=== PATIENT | female | born 1950 | race African-American/Black ===

== ENCOUNTER 2017-04-20 20:52 | Emergency (ER) | payer OTHER ==
[~2017-04-20] VITALS: Ht 149.9 cm; Wt 68.0 kg
--- NOTE | ~2017-04-20 | EKG ---
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
[2017-04-20] MEDS ORDERED: ADULT LOW DOSE81 MG PO (22:05)
[2017-04-20] MEDS ORDERED: UNICOMPLEX M TA1 TA1 PO (22:05)
[2017-04-20 22:43] LABS: ABSOLUTE NEUTROPHILS 5.7 thou/uL (1.4-8.2); BASOPHILS 0.8 % (0.0-2.0); EOSINOPHILS 0.7 % (0.0-3.0); HEMATOCRIT 39.6 % (37.0-47.0); LYMPHOCYTES 29.5 % (24.0-44.0); MCH 27.9 pg (26.0-34.0); MCHC 32.8 g/dL (28.0-37.0); MCV 85.2 fL (80.0-100.0); MONOCYTES 6.4 % (1.0-8.0); PLATELET COUNT 335 thou/uL (150-400); POLYS 62.6 % (36.0-66.0); RBC 4.65 mil/uL (4.20-5.00); RDW 14.1 % (10.5-14.5); WBC 9.1 thou/uL (4.0-11.0)
[2017-04-20 22:45] LABS: MANUAL DIFF NO
[2017-04-20 22:45] LABS: URINE BILIRUBIN NEGATIVE (Negative); URINE BLOOD NEGATIVE (Negative); URINE COLOR YELLOW; URINE GLUCOSE-RANDOM* NEGATIVE (Negative); URINE KETONES NEGATIVE (Negative); URINE LEUKOCYTES-REFLEX 1+ (Negative); URINE PROTEIN (DIPSTICK) NEGATIVE (Negative); URINE SPECIFIC GRAVITY 1.015 (1.003-1.035); URINE UROBILINOGEN 0.2 E.U./dl (0.2-1.0)
[2017-04-20 22:50] LABS: ANION GAP 12 mmol/L (7-16); BUN 18 mg/dL (7-18); CALCIUM 9.6 mg/dL (8.5-10.1); CHLORIDE 104 mmol/L (98-107); CO2 26 mmol/L (21-32); CREATININE 0.9 mg/dL (0.6-1.0); GLUCOSE 130 mg/dL (74-106); POTASSIUM 4.1 mmol/L (3.5-5.1); SODIUM 142 mmol/L (136-145)
[2017-04-20 22:53] LABS: APTT 26.6 Seconds (24.5-32.8); PROTIME 10.5 Seconds (9.3-11.4)
[2017-04-20 22:54] LABS: SQUAMOUS 0-3 Few /LPF (0-3)
[2017-04-20 22:55] LABS: CASTS None Seen /LPF (None Seen); CRYSTALS None Seen /LPF (None Seen); URINE RBC None Seen /HPF (0-2); URINE WBC-REFLEX 0-5 Rare /HPF (0-5)
[2017-04-20 23:16] LABS: ALBUMIN 4.6 g/dL (3.4-5.0); ALKALINE PHOSPHATASE 98 U/L (46-116); CK-MB MASS 0.6 ng/mL (<0.5-3.6); NT-PRO BRAIN NAT PEPTIDE 45 pg/mL (<300); SGOT 39 U/L (15-37); SGPT 43 U/L (30-65); TOTAL BILIRUBIN 0.2 mg/dL (<0.1-1.0); TROPONIN-I < 0.04 ng/mL (<0.04-0.07)
[2017-04-20] MEDS ORDERED: LOPRESSOR25 PO (23:25)
[2017-04-21 00:29] VITALS: BP 137/89
== END 2017-04-21 00:31 | disposition home or self-care (01) ==
LOC: ER 20:52
PROVIDERS: Emergency Medicine
DX: I16.0 Hypertensive urgency (principal); R00.0 Tachycardia, unspecified; R04.2 Hemoptysis; N63 Unspecified lump in breast; K02.9 Dental caries, unspecified; Z88.2 Allergy status to sulfonamides; Z87.891 Personal history of nicotine dependence

== ENCOUNTER 2017-07-17 21:39 | Inpatient (IN) | payer OTHER ==
[~2017-07-17] VITALS: Ht 152.4 cm; Wt 80.3 kg
--- NOTE | ~2017-07-17 | S ---
[facility] [place] [address] SURGICAL PATH RPT PROCEDURE Name: CATA LANGLEY Room #: 439-P [facility] IN M.R.#: [id number] Admission: 07/17/17 Date of : 52 Discharge: 07/22/17 Report #: [id number] Path Case #: [id number] PATHOLOGY REPORT COLLECTION DATE: 07/21/2017 RECEIVED DATE: 07/21/2017 SUBMITTING PHYS: Dr. Lai Mcpherson OTHER PHYS: Dr. Armen Flores SPECIMEN(S) RECEIVED: A.Pigmented lesion left parietal scalp * * * * * * * * * * * * FINAL DIAGNOSIS: Skin and subcutaneous tissue, "pigmented lesion left parietal scalp", incisional biopsy: - SKIN AND SUBCUTANEOUS TISSUE WITH METASTATIC CARCINOMA (see comment). COMMENT: Sections show skin and subcutaneous tissue with involvement by a malignant neoplasm. The 3:00, 9:00 and deep biopsy margins are positive. The tumor cells are morphologically similar to the patient's concurrently diagnosed invasive mammary carcinoma with lobular features from a right breast biopsy ([id number]). Properly-controlled immunohistochemical stains are performed. Block A2. AE1/AE3 - Tumor cells reactive ER - Tumor cells reactive S100 - Tumor cells nonreactive MART-1 - Tumor cells nonreactive Overall, the diagnosis is skin and subcutaneous tissue with metastatic carcinoma that is morphologically compatible with a breast origin. Clinical and radiographic correlation is recommended. The H and E stained slides are co-reviewed with Dr. Shaneka Woods. The case is discussed with Dr. Lai Mcpherson on 07/24/2017 at 2:50 PM. (CLW:jamal; 07/24/2017) PATHOLOGIST: Harper Hugo M.D. REPORT ELECTRONICALLY SIGNED BY: Harper Hugo M.D. DATE/TIME: 07/24/2017 22:08 * * * * * * * * * * * * GROSS PATHOLOGY: [facility] [address] [place] [address] SURGICAL PATH RPT PROCEDURE Name: CATA LANGLEY Room #: 439-P [facility] IN [facility]#: [id number] Admission: 07/17/17 Date of : 52 Discharge: 07/22/17 Report #: [id number] Path Case #: [id number] The specimen is received in formalin, labeled "Ross, pigmented lesion left parietal scalp, possible melanoma, black short suture inferior, black long suture superior, short blue lateral, long blue medial" is an ellipse of alvarado-brown skin oriented with sutures as described. The black short suture, inferior will be arbitrarily designated as 6:00 while the long black suture, superior as 12:00. It measures 2.2 cm 126:00, 1.4 cm 93:00, excised to a maximum depth of 0.9 cm. There is a roughened and pigmented brown black central lesion identified that measures 1.1 x 0.9 cm. The lesion grossly extends to within 0.1 cm of the nearest 3:00 margin. The lesion clears all other margins by 0.3 cm or greater. The margin is inked as follows: 126:00 black, 69:00 yellow, and 912:00 blue. The specimen is entirely submitted as follows: A1 tips A2 remainder. (NAYLA; 07/22/2017) CLINICAL HISTORY: Possible melanoma, increasing in size INITIAL CPT CODE(S): A; 62751, 85622, 80397, 92704, 43719 Professional services performed by [facility] at [facility] [address], [place] [address] Technical services performed by [facility] at [address] [place] [address], [address], [place] [address]. [facility] [address] [place] [address] PHONE: [phone] DIRECTOR: George Vazquez M.D. * * * END OF REPORT * * *
--- NOTE | ~2017-07-17 | EKG ---
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1950 Requested By: Espinoza Ho Order Number: [id number] MD: Rashi Gonzalez Measurements Intervals [place] Rate: 121 P: 64 SD: 156 QRS: 3 QRSD: 76 T: 65 QT: 321 QTc: 456 Interpretive Statements Sinus tachycardia Otherwise no significant abnormality Compared to ECG 04/20/2017 22:42:32 Heart rate has increased Electronically Signed On 07-20-2017 13:29:47 CDT by Rashi Gonzalez [email or web address] <ELECTRONICALLY SIGNED> By: Rashi Gonzalez MD, [facility] 07/20/17 1329 12 12 Rashi Gonzalez MD, [facility] /EPI
--- NOTE | ~2017-07-17 | S ---
[facility] [address] [place] [address] SURGICAL PATH RPT PROCEDURE Name: CATA LANGLEY Room #: 439-P [facility] IN M.R.#: [id number] Admission: 07/17/17 Date of : 52 Discharge: 07/22/17 Report #: [id number] Path Case #: [id number] PATHOLOGY REPORT COLLECTION DATE: 07/22/2017 RECEIVED DATE: 07/22/2017 SUBMITTING PHYS: Dr. Lai Mcpherson OTHER PHYS: Dr. Reymundo Nance SPECIMEN(S) RECEIVED: A.Right breast biopsy 1000, 6cmfn B.Right axillary node * * * * * * * * * * * * FINAL DIAGNOSIS: A. "Right breast biopsy 1000, 6 cm FN", image-guided needle biopsy: - Invasive mammary carcinoma with lobular features, involving all cores, longest contiguous focus measuring 1.5 cm on the slide. B. "Right axillary node", image-guided needle biopsy: - Invasive mammary carcinoma. (See comment) - No lymph node architecture present. (CLW:ramy; 07/23/2017) COMMENT: Specimen type: Image-guided needle biopsy Tumor site: Right breast 1000, 6 cm FN Tumor quantitation: Involving all cores, longest contiguous focus measuring 1.5 cm on the slide Histologic type: Invasive mammary carcinoma Histologic grade: Grade II, moderately differentiated Tubules, nuclei and mitoses: Tubules score-3, nuclei score-2, mitoses score-2 LVSI: Indeterminate Microcalcifications: Not identified Markers: ER, WI, HER2, and Ki-67 Block: Pending on A1 The tumor cells within specimens A and B are similar histologically. On specimen B, no lymph node architecture to confirm the presence of a lymph node is identified. Prognostic markers will be performed on specimen A. Clinical and radiographic correlation is required. The case is co-reviewed with Dr. Shaneka Woods. The case is discussed with Nik in the [facility] on 07/23/2017 at 11:00 AM. Please see also the concurrently diagnosed skin incisional biopsy showing metastatic carcinoma ([id number]). (CLW:ramy; 07/23/2017) PATHOLOGIST: [place] [address] SURGICAL PATH RPT PROCEDURE Name: CATA LANGLEY Room #: 439-P [facility] IN [facility].#: [id number] Admission: 07/17/17 Date of : 52 Discharge: 07/22/17 Report #: [id number] Path Case #: [id number] REPORT ELECTRONICALLY SIGNED BY: Harper Hugo M.D. DATE/TIME: 07/24/2017 10:14 * * * * * * * * * * * * GROSS PATHOLOGY: A. Received in formalin labeled "Cata Langley, right breast 10:00, 6 cm FN," are multiple needle cores of yellow-pisano fibrofatty tissue measuring 1.8 x 0.4 x 0.2 cm in aggregate dimensions. The tissue is submitted in its entirety in cassette A1. The cold ischemic time is less than 1 minute. The total formalin fixation time is 11 hours and 20 minutes. B. Received in formalin labeled "Cata Langley, right breast axilla node biopsy," are three distinct needle cores of alvarado soft tissue ranging from 1.2 to 1.5 cm in length, which are submitted entirely in cassette B1. (DAC; 07/22/2017) CLINICAL HISTORY: A. Right breast mass B. Right breast axilla adenopathy INITIAL CPT CODE(S): A; 42338, 12940(4) B; 00720 Professional services performed by [facility] at [address], [place] [address] Technical services performed by [facility] at [address] [place] [address], [place] [address]. PROCEDURE REPORT (Order Date: 07/23/2017 11:04) COMMENT: Quantitative image analysis was performed on block A1. Please see next page for scanned image of results. (AMJ 07/27/2017) PATHOLOGIST: Corbin Kelly M.D. REPORT ELECTRONICALLY SIGNED BY: Corbin Kelly M.D. DATE/TIME: 07/27/2017 15:[address] [facility] [address] [place] [address] PHONE: [phone] [address] SURGICAL PATH RPT PROCEDURE Name: CATA LANGLEY Room #: 439-P DIS IN M.R.#: [id number] Admission: 07/17/17 Date of : 52 Discharge: 07/22/17 Report #: [id number] Path Case #: [id number] DIRECTOR: George Vazquez M.D. * * * END OF REPORT * * *
--- NOTE | ~2017-07-17 | O ---
[facility] [place] [address] OPERATIVE REPORT Name: CATA LANGLEY Room #: 439-P [facility] IN M.R.#: [id number] Admission: 07/17/17 Attend Phys: Mark Ayers MD Discharge: Date of : 52 Report #: [id number] THIS REPORT FOR: //name// CC: CARLOS physician/PCP Mark Ayers DATE OF SERVICE: 07/21/2017 PREOPERATIVE DIAGNOSIS: A 2 cm pigmented skin lesion, left posterior parietal scalp directly behind the ear. POSTOPERATIVE DIAGNOSIS: A 2 cm pigmented skin lesion, left posterior parietal scalp directly behind the ear, possible melanoma or blue nevus. PROCEDURE: Excision of 2 cm pigmented left posterior scalp skin lesion with complex primary closure. SURGEON: Lai Mcpherson M.D. DESK DIRECTOR: PADDY Parker. INDICATIONS: A 66-year-old lady with 2 cm pigmented lesion present for many years with some nodularity in the tissue underneath. This requires excision to delineate the possibility of melanoma. OPERATIVE PROCEDURE: The patient had thorough discussion of procedure, benefits and risks. She gave informed consent to proceed. She was brought to the operating room suite and had satisfactory induction of sedation with local moderate anesthetic care. Some of the scalp hair was clipped away. The patient had her head turned to the right and a sterile prep and paint with Betadine was performed, draping was completed, 0.5% plain Naropin was injected superficially, 20 mL was utilized circumferentially for local anesthesia. Elliptical excision of the mass was performed, the skin mass in the ellipse of a 2 x 2.5 cm in greatest dimensions. The black short suture marked the inferior aspect of the ellipse. The black long suture delineated the superior aspect of the ellipse of tissue. The blue short suture marked the lateral aspect of the lesion, which was toward the ear. The blue long suture marked the medial aspect of lesion. All was submitted for histologic evaluation. Hemostasis was complete. The skin and subcutaneous tissue were then undermined utilizing electrocautery for approximation. The deep subcutaneous tissue was then approximated with interrupted 3-0 Vicryl sutures. The skin margins were then approximated with interrupted 3-0 vertical mattress nylon sutures. The space between was then closed with 4-0 nylon horizontal mattress sutures. Skin approximation was complete. Triple antibiotic ointment was applied. A sterile dressing was applied. Estimated blood loss was less than 5 mL. The patient tolerated the [address] [address] OPERATIVE REPORT Name: CATA LANGLEY Room #: 439-P [facility] IN ..#: [id number] Admission: 07/17/17 Attend Phys: Mark Ayers MD Discharge: Date of : 52 Report #: [id number] procedure well and she returned to recovery room in stable and satisfactory condition. <ELECTRONICALLY SIGNED> By: Lai Mcpherson MD, FACS 07/22/17 1353 1359 1433 Lai Mcpherson MD, FACS /nt
--- NOTE | ~2017-07-17 | HC ---
[facility] [place] [address] CONSULTATION Name: CATA LANGLEY Room #: 439-P [facility] IN ..#: [id number] Admission: 07/17/17 Attend Phys: Mark Ayers MD Discharge: Date of : 52 Report #: [id number] THIS REPORT FOR: //name// CC: CARLOS physician/PCP Mark Ayers DATE OF SERVICE: 07/17/2017 I have been asked to evaluate this 66-year-old lady who is presented to the emergency department with chief complaint of dizziness and elevated blood pressure. The patient presented to the emergency department because of being out of her blood pressure medications. She ran out in the last one month, has not been taking them. She has not had a recent primary care physician and had no insurance prior to the onset of her new Medicare coverage. The patient also has a large right breast mass with peau d'orange of the skin as well as nipple inversion involving the right axillary adenopathy also. At the time of examination in the emergency department CT scan, she was also found to have a large left adrenal mass. PAST MEDICAL HISTORY: Consistent with hypertension and the breast mass that she admits to having known about for 2 years without a diagnosis being made. MEDICATIONS: Involved metoprolol on a 25 mg daily basis, aspirin, and multivitamins with iron. ALLERGIES: To SULFA MEDICATIONS. PAST SURGICAL HISTORY: She denies. FAMILY HISTORY: The patient lives alone. REVIEW OF SYSTEMS: Ten-point review of systems, she has had some increased dizziness in recent days, feeling different. Breasts, admits to having a right breast mass for greater than 2 years with recent nipple inversion in the last 4-6 months. She had been unable to obtain medical care for the breast mass. PHYSICAL EXAMINATION: GENERAL: Reveals an alert, cooperative lady, resting comfortably in chair. HEENT: Pupils are equal, round, and reactive to light. Scalp, there is a 2-cm pigmented circular lesion in the skin of the scalp in the left posterior parietal region. NECK: No left posterior or anterior cervical adenopathy. Right, there is a right supraclavicular 2 cm node in the supraclavicular space. LUNGS: Clear at the bases bilaterally. CARDIOVASCULAR: Regular rate and rhythm. BREASTS: Left breast is unremarkable without axillary adenopathy. Right breast [address] [address] CONSULTATION Name: CATA LANGLEY Room #: 439-P ADM IN M.R.#: [id number] Admission: 07/17/17 Attend Phys: Mark Ayers MD Discharge: Date of : 52 Report #: [id number] demonstrates a 6 x 8 cm mass in the upper outer quadrant of the right breast with peau d'orangeof the skin. There is nipple inversion. There is matted axillary adenopathy and there is a small 1.5 cm area of erythematous skin consistent with skin erosion. ABDOMEN: Obese, unremarkable. NEUROLOGIC: She is oriented x3, bilateral motor symmetry. ASSESSMENT AND PLAN: 1. Review of the patient's CT scan demonstrates the right breast mass and axillary adenopathy consistent with primary breast cancer, probable stage 3. 2. Pigmented lesion, left posterior triangle scalp. 3. Left adrenal mass. 4. Hypertension, uncontrolled. I would recommend proceeding with bilateral breast mammography and diagnostic mammography. The patient will need a right breast ultrasound with biopsy of the mass. She also needs bilateral MRI of the breasts. She needs evaluation of the left adrenal mass. Also, recommended would be excision of the left posterior parietal scalp pigmented lesion. Thank you for allowing us to participate in her care and we will follow her with you. <ELECTRONICALLY SIGNED> By: Lai Mcpherson MD, FACS 07/22/17 1353 1355 07 Lai Mcpherson MD, FACS /nt
[~2017-07-17 21:39] MED LIST: ADULT LOW DOSE81 MG PO; LOPRESSOR25 PO; UNICOMPLEX M TA1 TA1 PO
[2017-07-17 21:45] VITALS: BP 224/140
[2017-07-17 22:18] LABS: ABSOLUTE NEUTROPHILS 5.2 thou/uL (1.4-8.2); HEMOGLOBIN 12.4 gm/dL (12.0-15.0); MCH 27.8 pg (26.0-34.0); MCHC 33.6 g/dL (28.0-37.0); MCV 82.8 fL (80.0-100.0); MONOCYTES 7.7 % (1.0-8.0); PLATELET COUNT 317 thou/uL (150-400); POLYS 61.3 % (36.0-66.0); RBC 4.47 mil/uL (4.20-5.00); RDW 13.4 % (10.5-14.5); WBC 8.5 thou/uL (4.0-11.0)
[2017-07-17 22:20] LABS: MANUAL DIFF NO
[2017-07-17 22:30] LABS: ANION GAP 11 mmol/L (7-16); BUN 17 mg/dL (7-18); CALCIUM 9.9 mg/dL (8.5-10.1); CHLORIDE 103 mmol/L (98-107); CO2 25 mmol/L (21-32); CREATININE 1.4 mg/dL (0.6-1.0); GLUCOSE 160 mg/dL (74-106); POTASSIUM 3.9 mmol/L (3.5-5.1); SODIUM 139 mmol/L (136-145)
[2017-07-17 22:39] LABS: ALBUMIN 4.2 g/dL (3.4-5.0); ALKALINE PHOSPHATASE 153 U/L (46-116); MAGNESIUM 1.9 mg/dL (1.8-2.4); SGOT 37 U/L (15-37); SGPT 33 U/L (30-65); TOTAL BILIRUBIN 0.1 mg/dL (<0.1-1.0); TOTAL PROTEIN 9.3 g/dL (6.4-8.2); TROPONIN-I < 0.04 ng/mL (<0.04-0.07)
[2017-07-17 23:35] VITALS: BP 179/137
[2017-07-17 23:53] VITALS: BP 169/101
[2017-07-18 00:34] VITALS: BP 165/89
[2017-07-18 04:34] VITALS: BP 139/77
[2017-07-18 08:00] VITALS: BP 161/87
[2017-07-18 16:00] VITALS: BP 161/103
[2017-07-18 20:32] VITALS: BP 186/98
[2017-07-18 22:06] LABS: GLYCOHEMOGLOBIN (HGB A1C) 6.1 % (4.8-5.6)
[2017-07-19 00:10] VITALS: BP 140/84
[2017-07-19 00:12] VITALS: BP 140/84
[2017-07-19 03:01] LABS: HEMATOCRIT 37.4 % (37.0-47.0); HEMOGLOBIN 12.1 gm/dL (12.0-15.0); MCH 27.3 pg (26.0-34.0); MCHC 32.3 g/dL (28.0-37.0); MCV 84.6 fL (80.0-100.0); RBC 4.42 mil/uL (4.20-5.00); RDW 13.6 % (10.5-14.5); WBC 7.9 thou/uL (4.0-11.0)
[2017-07-19 03:02] LABS: CALCIUM 9.5 mg/dL (8.5-10.1); CREATININE 0.9 mg/dL (0.6-1.0); POTASSIUM 3.9 mmol/L (3.5-5.1)
[2017-07-19 04:00] VITALS: BP 137/50; BP 153/85
[2017-07-19 07:45] VITALS: BP 144/72
[2017-07-19 15:45] VITALS: BP 131/69
[2017-07-19 19:55] VITALS: BP 137/77
[2017-07-20 06:10] VITALS: BP 134/76
[2017-07-20 08:00] VITALS: BP 145/76
[2017-07-20 15:38] VITALS: BP 137/79
[2017-07-20 19:37] VITALS: BP 145/77
[2017-07-21 04:08] VITALS: BP 129/77
[2017-07-21 08:00] VITALS: BP 130/86
[2017-07-21 12:05] VITALS: BP 150/92
[2017-07-21 16:08] LABS: A/G RATIO 1.1 (0.7-1.7); ALBUMIN 3.6 g/dL (2.9-4.4); ALPHA 1 0.2 g/dL (0.0-0.4); ALPHA 2 0.7 g/dL (0.4-1.0); BETA 1.2 g/dL (0.7-1.3); GAMMA 1.3 g/dL (0.4-1.8); M-SPIKE Not Observed g/dL (Not Observed)
[2017-07-21 17:45] VITALS: BP 141/83
[2017-07-21 19:31] VITALS: BP 134/88
[2017-07-22 03:36] VITALS: BP 150/72
[2017-07-22 08:35] VITALS: BP 126/73
[2017-07-22] MEDS ORDERED: CEPHALEXIN 500500 M3 PO (09:53)
[2017-07-22] MEDS ORDERED: METOPROLOL SUCC50 MG PO (09:53)
[2017-07-22] MEDS ORDERED: NORVASC10 MG PO (09:53)
[2017-07-22 11:22] VITALS: BP 126/73
[2017-07-24 07:11] LABS: URINE METANEPHRINE 44 ug/L (Undefined); URINE METANEPHRINES 55 ug/24 hr (45-290); URINE NORMETANEPHRINE 515 ug/L (Undefined); URINE NORMETANEPHRINE 24HR 644 ug/24 hr (82-500)
[2017-07-26 19:09] LABS: METANEPHRINE-PL < 10 pg/mL (0-62); NORMETANEPHRINE - PL 154 pg/mL (0-145)
== END 2017-07-22 16:34 | disposition home or self-care (01) | DRG 570 ==
LOC: ER 21:39 → EROBS 23:20 → 4S 23:20 → ENTRNSPT 07-22 16:15 → 4S 07-22 16:34
PROVIDERS: Emergency Medicine; Internal Medicine Hematology & Oncology; Nurse Practitioner Family; Surgery
PROC: 0HB0XZZ Excision of Scalp Skin, External Approach (ICD-10-PCS; principal; 2017-07-21)
PROC: 0HBT3ZX Excision of Right Breast, Percutaneous Approach, Diagnostic (ICD-10-PCS; 2017-07-22)
PROC: 07B53ZX Excision of Right Axillary Lymphatic, Percutaneous Approach, Diagnostic (ICD-10-PCS; 2017-07-22)
DX: C50.911 Malignant neoplasm of unspecified site of right female breast (principal); N17.0 Acute kidney failure with tubular necrosis; I10 Essential (primary) hypertension; N63 Unspecified lump in breast; E66.9 Obesity, unspecified; R59.9 Enlarged lymph nodes, unspecified; E27.9 Disorder of adrenal gland, unspecified; L81.9 Disorder of pigmentation, unspecified; R00.0 Tachycardia, unspecified; R73.9 Hyperglycemia, unspecified; Z68.34 Body mass index [BMI] 34.0-34.9, adult; Z79.82 Long term (current) use of aspirin; Z87.891 Personal history of nicotine dependence; Z88.2 Allergy status to sulfonamides
CPT/HCPCS: 10100; 50010; 50101; 50386; 50403; 56524; 56526; 56527; 62110; 62900; 70005

== ENCOUNTER 2017-08-07 20:32 | Emergency (ER) | payer OTHER ==
[~2017-08-07] VITALS: Ht 149.9 cm; Wt 80.3 kg
[~2017-08-07 20:32] MED LIST changes: +CEPHALEXIN 500500 M3 PO; +METOPROLOL SUCC50 MG PO; +NORVASC10 MG PO
[2017-08-07 21:50] LABS: ABSOLUTE NEUTROPHILS 3.7 thou/uL (1.4-8.2); BASOPHILS 1.2 % (0.0-2.0); HEMATOCRIT 38.1 % (37.0-47.0); HEMOGLOBIN 12.8 gm/dL (12.0-15.0); LYMPHOCYTES 37.2 % (24.0-44.0); MCH 27.8 pg (26.0-34.0); MCHC 33.5 g/dL (28.0-37.0); MCV 82.8 fL (80.0-100.0); MONOCYTES 6.4 % (1.0-8.0); PLATELET COUNT 375 thou/uL (150-400); POLYS 54.2 % (36.0-66.0); RDW 13.6 % (10.5-14.5); WBC 6.8 thou/uL (4.0-11.0)
[2017-08-07 21:52] LABS: MANUAL DIFF NO
[2017-08-07] MEDS ORDERED: ULTRAM 50MG TAB50 MG PO (21:58)
[2017-08-07 22:06] LABS: CALCIUM 9.8 mg/dL (8.5-10.1); POTASSIUM 3.6 mmol/L (3.5-5.1)
== END 2017-08-07 22:17 | disposition home or self-care (01) ==
LOC: ER 20:32
PROVIDERS: Emergency Medicine
DX: N64.4 Mastodynia (principal); N63 Unspecified lump in breast; I10 Essential (primary) hypertension; Z87.891 Personal history of nicotine dependence; Z88.2 Allergy status to sulfonamides

== ENCOUNTER 2017-09-15 19:52 | Emergency (ER) | payer OTHER ==
[~2017-09-15] VITALS: Ht 149.9 cm; Wt 74.8 kg
[~2017-09-15 19:52] MED LIST changes: +ULTRAM 50MG TAB50 MG PO
== END 2017-09-15 22:02 | disposition home or self-care (01) ==
LOC: ER 19:52
DX: R60.0 Localized edema (principal); I10 Essential (primary) hypertension; Z87.891 Personal history of nicotine dependence; Z88.2 Allergy status to sulfonamides

== ENCOUNTER 2017-10-07 07:47 | Emergency (ER) | payer OTHER ==
[~2017-10-07] VITALS: Ht 149.9 cm; Wt 74.8 kg
--- NOTE | ~2017-10-07 | EKG ---
[address] [address] [facility] [place] [address] ELECTROCARDIOGRAM REPORT Name: CATA LANGLEY 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 10/07/17 0958 0801 08 Rashi Gonzalez MD, FACC /EPI
[2017-10-07 08:13] LABS: ABSOLUTE NEUTROPHILS 4.7 thou/uL (1.4-8.2); EOSINOPHILS 0.5 % (0.0-3.0); HEMATOCRIT 38.6 % (37.0-47.0); HEMOGLOBIN 12.8 gm/dL (12.0-15.0); LYMPHOCYTES 29.8 % (24.0-44.0); MCH 26.9 pg (26.0-34.0); MCHC 33.2 g/dL (28.0-37.0); MCV 80.9 fL (80.0-100.0); MONOCYTES 7.2 % (1.0-8.0); PLATELET COUNT 341 thou/uL (150-400); POLYS 61.5 % (36.0-66.0); RBC 4.77 mil/uL (4.20-5.00); RDW 14.6 % (10.5-14.5); WBC 7.6 thou/uL (4.0-11.0)
[2017-10-07 08:14] LABS: MANUAL DIFF NO
[2017-10-07 08:25] LABS: ANION GAP 10 mmol/L (7-16); BUN 15 mg/dL (7-18); CALCIUM 10.3 mg/dL (8.5-10.1); CHLORIDE 101 mmol/L (98-107); CO2 25 mmol/L (21-32); GLUCOSE 159 mg/dL (74-106); POTASSIUM 3.9 mmol/L (3.5-5.1); SODIUM 136 mmol/L (136-145)
[2017-10-07 08:27] LABS: APTT 29.1 Seconds (24.5-32.8); PROTIME 10.7 Seconds (9.3-11.4)
[2017-10-07 08:36] LABS: ALKALINE PHOSPHATASE 227 U/L (46-116); MAGNESIUM 1.8 mg/dL (1.8-2.4); SGOT 49 U/L (15-37); SGPT 40 U/L (30-65); TOTAL BILIRUBIN 0.3 mg/dL (<0.1-1.0); TOTAL PROTEIN 8.8 g/dL (6.4-8.2); TROPONIN-I < 0.04 ng/mL (<0.06)
[2017-10-07] MEDS ORDERED: TRAMADOL 50 MG50 MG PO (11:13)
[2017-10-07] MEDS ORDERED: TOPROL XL50 MG PO (11:16)
[2017-10-07] MEDS ORDERED: NORVASC10 MG PO (11:16)
== END 2017-10-07 11:20 | disposition home or self-care (01) ==
LOC: ER 07:47
PROVIDERS: Emergency Medicine
DX: I10 Essential (primary) hypertension (principal); R00.0 Tachycardia, unspecified; C80.1 Malignant (primary) neoplasm, unspecified; C79.81 Secondary malignant neoplasm of breast; Z91.14 Patient's other noncompliance with medication regimen; Z88.2 Allergy status to sulfonamides; Z87.891 Personal history of nicotine dependence

== ENCOUNTER → 2017-11-17 | Outpatient (CLI) | payer OTHER, SELFPAY ==
[~2017-11-17] MED LIST changes: +AROMASIN25 MG PO; +ASPIR 8181 MG PO; +BISAC-EVAC10 MG RECTAL; +BISACODYL SUPP10 MG RECTAL; +COLACE 100 MG100 MG PO; +DURAGESIC1 EAC2 TOP; +DURAGESIC1 EAC3 TRANSDERM; +DURAGESIC1 EACH TOP; +DURAGESIC1 EACH TRANSDERM; +DURAGESIC25 MCG/HR TRANSDERM; +IBRANCE125 MG PO; +MILK OF MA2400 MG/10 PO; +MSL20MG/ML SUBLING; +NAPROSYN500 MG PO; +NAPROXEN250 MG PO; +NORCO 5-325 TA1 EACH PO; +OXYCODONE HCL 55 MG PO; +OXYCONTIN10 M1 PO; +PROTONIX40 M1 PO; +SENNA8.6 MG PO; +SENNOSIDES8.6 MG PO; +TOPROL XL25 MG PO; +TOPROL XL50 MG PO; +TRAMADOL 50 MG50 MG PO
== END ==
LOC: HYPER 06:56
DX: S21.001A Unspecified open wound of right breast, initial encounter (principal); L98.492 Non-pressure chronic ulcer of skin of other sites with fat layer exposed; I89.0 Lymphedema, not elsewhere classified; I10 Essential (primary) hypertension; Z85.3 Personal history of malignant neoplasm of breast; Z87.891 Personal history of nicotine dependence; X58.XXXA Exposure to other specified factors, initial encounter; Y93.89 Activity, other specified; Y92.89 Other specified places as the place of occurrence of the external cause; Y99.8 Other external cause status

== ENCOUNTER 2017-12-07 10:37 | Emergency (ER) | payer OTHER ==
[~2017-12-07] VITALS: Ht 149.9 cm; Wt 70.3 kg
[~2017-12-07 10:37] MED LIST changes: -ASPIR 8181 MG PO; -BISAC-EVAC10 MG RECTAL; -BISACODYL SUPP10 MG RECTAL; -COLACE 100 MG100 MG PO; -DURAGESIC1 EAC2 TOP; -DURAGESIC1 EAC3 TRANSDERM; -DURAGESIC1 EACH TOP; -DURAGESIC1 EACH TRANSDERM; -DURAGESIC25 MCG/HR TRANSDERM; -MILK OF MA2400 MG/10 PO; -MSL20MG/ML SUBLING; -NAPROSYN500 MG PO; -NAPROXEN250 MG PO; -OXYCODONE HCL 55 MG PO; -OXYCONTIN10 M1 PO; -PROTONIX40 M1 PO; -SENNA8.6 MG PO; -SENNOSIDES8.6 MG PO; -TOPROL XL25 MG PO
[2017-12-07] MEDS ORDERED: OXYCONTIN10 M1 PO (10:59)
[2017-12-07 11:14] LABS: URINE BILIRUBIN NEGATIVE (Negative); URINE BLOOD NEGATIVE (Negative); URINE CLARITY CLEAR; URINE COLOR YELLOW; URINE GLUCOSE-RANDOM* NEGATIVE (Negative); URINE KETONES NEGATIVE (Negative); URINE LEUKOCYTES NEGATIVE (Negative); URINE NITRITE NEGATIVE (Negative); URINE PROTEIN (DIPSTICK) NEGATIVE (Negative); URINE SPECIFIC GRAVITY >= 1.030 (1.005-1.035); URINE UROBILINOGEN 0.2 E.U./dl (0.2-1.0)
[2017-12-07 11:14] LABS: ABSOLUTE NEUTROPHILS 5.1 thou/uL (1.4-8.2); BASOPHILS 1.4 % (0.0-2.0); EOSINOPHILS 2.2 % (0.0-3.0); HEMATOCRIT 35.7 % (37.0-47.0); HEMOGLOBIN 11.7 gm/dL (12.0-15.0); LYMPHOCYTES 22.1 % (24.0-44.0); MCH 27.4 pg (26.0-34.0); MCHC 32.8 g/dL (28.0-37.0); MCV 83.6 fL (80.0-100.0); MONOCYTES 7.1 % (1.0-8.0); PLATELET COUNT 355 thou/uL (150-400); POLYS 67.2 % (36.0-66.0); RBC 4.27 mil/uL (4.20-5.00); RDW 18.2 % (10.5-14.5); WBC 7.6 thou/uL (4.0-11.0)
[2017-12-07 11:24] LABS: CREATININE 0.9 mg/dL (0.6-1.0); POTASSIUM 3.9 mmol/L (3.5-5.1)
[2017-12-07 11:29] LABS: ALBUMIN 3.8 g/dL (3.4-5.0); TOTAL BILIRUBIN 0.2 mg/dL (<0.1-1.0)
[2017-12-07] MEDS ORDERED: NAPROSYN500 MG PO (12:43)
[2017-12-07 12:52] VITALS: BP 111/68
[2018-07-14] MEDS ORDERED: UNICOMPLEX M TA1 TA1 PO (21:13)
[2018-07-14] MEDS ORDERED: ASPIR 8181 MG PO (21:13)
[2018-07-14] MEDS ORDERED: TOPROL XL25 MG PO (21:14)
[2018-07-14] MEDS ORDERED: AROMASIN25 MG PO (21:14)
[2018-07-14] MEDS ORDERED: MSL20MG/ML SUBLING (21:15)
[2018-07-14] MEDS ORDERED: IBRANCE125 MG PO (21:15)
[2018-07-14] MEDS ORDERED: BISACODYL SUPP10 MG RECTAL (21:16)
[2018-07-14] MEDS ORDERED: MILK OF MA2400 MG/10 PO (21:17)
[2018-07-14] MEDS ORDERED: COLACE 100 MG100 MG PO (21:17)
[2018-07-14] MEDS ORDERED: SENNOSIDES8.6 MG PO (21:18)
[2018-07-14] MEDS ORDERED: NAPROSYN500 MG PO (21:18)
[2018-07-14] MEDS ORDERED: DURAGESIC1 EACH TOP (21:19)
[2018-07-14] MEDS ORDERED: DURAGESIC1 EAC2 TOP (21:19)
[2018-07-15] MEDS ORDERED: DURAGESIC25 MCG/HR TRANSDERM (09:15)
[2018-07-15] MEDS ORDERED: UNICOMPLEX M TA1 TA1 PO (09:18)
[2018-07-16] MEDS ORDERED: PROTONIX40 M1 PO (13:58)
== END 2017-12-07 13:06 | disposition home or self-care (01) ==
LOC: ER 10:37
PROVIDERS: Nurse Practitioner Family
DX: R07.89 Other chest pain (principal); I10 Essential (primary) hypertension; Z85.3 Personal history of malignant neoplasm of breast; Z88.2 Allergy status to sulfonamides; Z87.891 Personal history of nicotine dependence

== ENCOUNTER → 2017-12-15 | Outpatient (CLI) | payer OTHER ==
[~2017-12-15] MED LIST changes: +ASPIR 8181 MG PO; +BISAC-EVAC10 MG RECTAL; +BISACODYL SUPP10 MG RECTAL; +COLACE 100 MG100 MG PO; +DURAGESIC1 EAC2 TOP; +DURAGESIC1 EAC3 TRANSDERM; +DURAGESIC1 EACH TOP; +DURAGESIC1 EACH TRANSDERM; +DURAGESIC25 MCG/HR TRANSDERM; +MILK OF MA2400 MG/10 PO; +MSL20MG/ML SUBLING; +NAPROSYN500 MG PO; +NAPROXEN250 MG PO; +OXYCODONE HCL 55 MG PO; +OXYCONTIN10 M1 PO; +PROTONIX40 M1 PO; +SENNA8.6 MG PO; +SENNOSIDES8.6 MG PO; +TOPROL XL25 MG PO
== END ==
LOC: HYPER 12-08 09:42
DX: L98.492 Non-pressure chronic ulcer of skin of other sites with fat layer exposed (principal); I10 Essential (primary) hypertension; I89.0 Lymphedema, not elsewhere classified; Z87.891 Personal history of nicotine dependence; Z85.3 Personal history of malignant neoplasm of breast

== ENCOUNTER → 2018-01-12 | Outpatient (CLI) | payer OTHER | LOC: HYPER 01-05 18:16 | DX: L98.491 Non-pressure chronic ulcer of skin of other sites limited to breakdown of skin (principal); C50.111 Malignant neoplasm of central portion of right female breast; I10 Essential (primary) hypertension; I89.0 Lymphedema, not elsewhere classified; Z87.891 Personal history of nicotine dependence ==

== ENCOUNTER → 2018-02-04 | Outpatient (CLI) | payer OTHER | LOC: HYPER 07:03 | DX: L98.492 Non-pressure chronic ulcer of skin of other sites with fat layer exposed (principal); C50.111 Malignant neoplasm of central portion of right female breast; I10 Essential (primary) hypertension; I89.0 Lymphedema, not elsewhere classified; Z87.891 Personal history of nicotine dependence ==

== ENCOUNTER 2018-02-27 18:35 | Inpatient (IN) | payer OTHER ==
[~2018-02-27] VITALS: Ht 121.9 cm; Wt 63.8 kg
--- NOTE | ~2018-02-27 | HC ---
[facility] [place] [address] CONSULTATION Name: CATA LANGLEY Room #: 226-P [facility] IN ..#: [id number] Admission: 02/27/18 Attend Phys: Reymundo Martin DO Discharge: 03/06/18 Date of : 52 Report #: [id number] THIS REPORT FOR: //name// CC: CARLOS physician/PCP Reymundo Martin DATE OF SERVICE: 03/01/2018 WOUND CARE CONSULTATION PERSONAL PHYSICIAN: Dr. Reardon. CHIEF COMPLAINT: Right breast carcinoma with open wounds. HISTORY OF PRESENT ILLNESS: The patient is a 67-year-old black female who has a history of stage 4 breast cancer who is currently on oral chemotherapy. The patient was diagnosed with breast cancer in 07/2017, underwent radiation therapy and was admitted to the Emergency Department complaining of severe pain in her right breast, unrelieved with her oxycodone. The patient was admitted for pain relief as well as a palliative care consultation. We were asked to follow the wound while she is here. The patient states that she has been doing her normal wound treatments with morphine, Silvadene and Xeroform to the site. The patient states she has noticed that it has had a slightly more foul odor recently. However, the patient denies fevers or chills. The patient states the pain in the breast is somewhat excruciating. PAST MEDICAL HISTORY: Hypertension, stage 4 breast carcinoma in the right breast, hypertension, right arm lymphedema. CURRENT MEDICATIONS: Multiple, I reviewed the patient's medication list. ALLERGIES: SULFA; HOWEVER, THE PATIENT DOES TOLERATE SILVADENE CREAM TOPICALLY. SOCIAL HISTORY: The patient has a history of remotely smoking but has not smoked for well over a year. Denies alcohol use. FAMILY HISTORY: Not pertinent to current medical condition. REVIEW OF SYSTEMS: CONSTITUTIONAL: The patient denies fevers or chills. NEUROLOGIC: The patient complains of overall generalized fatigue, but no isolated weakness in arms or legs. EYES: No complaints. ENT: No complaints. CARDIAC: The patient has chest pain, palpitations, and has chronic right upper extremity lymphedema. [address] [address] CONSULTATION Name: CATA LANGLEY Reba Room #: 226-P [facility] IN [facility].#: [id number] Admission: 02/27/18 Attend Phys: Reymundo Martin DO Discharge: 03/06/18 Date of : 52 Report #: [id number] RESPIRATORY: The patient denies shortness breath, cough or wheezes. GASTROINTESTINAL: The patient has nausea, vomiting or abdominal pain. GENITOURINARY: The patient denies urgency or frequency. MUSCULOSKELETAL: The patient has pain in her right breast area. SKIN: There are multiple chronic ulcerations to the right breast. PHYSICAL EXAMINATION: VITAL SIGNS: Temp 36.9, pulse 78, respiration 18, BP 148/95. GENERAL: This is an alert and oriented x 3, pleasant black female who is in mild distress due to her pain. HEENT: Normocephalic, atraumatic. Mucous membranes are dry. Pupils are round. Sclerae are white. NECK: Supple, otherwise nontender. LUNGS: Diminished breath sounds heard throughout. BREASTS: Evaluation of right breast reveals multiple surgical incisions which have dry crusty drainage, somewhat tender to palpation. The tissue itself is consistent with radiated tissue being taut, firm and tender to palpation. There is a slight odor to the drainage; however, there are no signs of actual cellulitis or pus. There is no fluctuance from the breast itself. ABDOMEN: Soft, nontender. EXTREMITIES: The patient moves all extremities without difficulty. Evaluation of right upper extremity reveals 2-3+ edema with distal neurovascular otherwise intact. NEUROLOGIC: Cranial nerves 2-12 grossly intact. Motor and sensory grossly intact. LABORATORY DATA: White count 6.6, hemoglobin 10.9, albumin 3.5. IMPRESSION: 1. Multiple chronic ulcerations of the right breast, limited to breakdown of skin and fairly superficial without signs of overt cellulitis. 2. History of stage 4 breast carcinoma of the right breast. 3. Hypertension. 4. Right-sided breast pain. 5. Generalized debility. PLAN: At this time, we will resume the patient's morphine, Silvadene cream to be put on twice daily, cover this with Xeroform and ABD. We will watch the patient very closely while she is here. We will make sure we maximize her oral protein supplementation for healing. We will continue to follow her. We will continue all other current medications. <ELECTRONICALLY SIGNED> By: Randy Molina MD 03/08/18 1652 1323 1806 Randy Molina MD /nt
--- NOTE | ~2018-02-27 | HC ---
[facility] [place] [address] CONSULTATION Name: CATA LANGLEY Room #: 226-P [facility] IN M.R.#: [id number] Admission: 02/27/18 Attend Phys: Reymundo Martin DO Discharge: 03/06/18 Date of : 52 Report #: [id number] THIS REPORT FOR: //name// CC: [facility] physician/PCP Reymundo Molina MD DATE OF SERVICE: 03/05/2018 REQUESTING PHYSICIAN: Dr. Anibal Carson CHIEF COMPLAINT: Right breast pain. HISTORY OF PRESENT ILLNESS: The patient is a 67-year-old female who was admitted on 02/27/2018, has a history of stage 4 breast cancer, had increased right breast pain and she reports that this is internal in nature, not confined to the surface of the skin and in fact does not seem to involve the surface at all. She reports that at this current point in time, the pain is well managed but she did just receive oxycodone, two of her 5 mg. Over the past 24 hours, she has received approximately 102 mg of morphine equivalents in the form of 25 mcg fentanyl, 3 total mg of Dilaudid and 20 total mg of oxycodone. The patient had previously just been on oxycodone IR 5 mg q. 4 hours p.r.n. at home. She stated that that had worked previously, but had been worsening steadily over the last few days. The patient reports currently again that the bigger issue is that it acutely increases in pain and that this acute pain increase is difficult to manage with the oxycodone, which is taking approximately an hour to kick in. She states that the Dilaudid works quite well. However, it does have a short lifespan in her system and requires frequent administration of medications other than that, although she has only required 3 mg over the last 24 hours. I do believe she is getting some effect from the fentanyl and the patient agrees with this that this may be improving her pain overall. PAST MEDICAL HISTORY: Significant for hypertension, stage 4 breast cancer with bone metastasis SURGERIES: Tonsillectomy and tubal ligation. SOCIAL HISTORY: A 50-buoe-pzug smoking history. She has not currently told her family about her diagnosis of breast cancer, has spoken with hospice previously and has been considering palliative care as an option outpatient. MEDICATIONS: Previously on metoprolol succinate 50 mg daily, naproxen 500 mg b.i.d., amlodipine 10 mg daily, exemestane and Ibrance as well as aspirin [place] [address] CONSULTATION Name: CATA LANGLEY Room #: 226-P [facility] IN M.R.#: [id number] Admission: 02/27/18 Attend Phys: Reymundo Martin DO Discharge: 03/06/18 Date of : 52 Report #: [id number] FAMILY HISTORY: Sister had breast lump. ALLERGIES: SULFA. REVIEW OF SYSTEMS: GENERAL: Denies any fevers or chills. CARDIOVASCULAR: Denies chest pain, palpitations or edema. RESPIRATORY: Denies shortness of breath. Denies cough or wheezing. MUSCULOSKELETAL: Reports right breast pain. Denies any left femoral pain. She has previously had radiation to this area for metastasis. PHYSICAL EXAMINATION: This includes: VITAL SIGNS: Temperature 37.2, pulse 90, respirations 18, blood pressure 120/74 and 99% on room air. GENERAL: The patient is alert. She is oriented x 3, in no acute distress. HEENT: Extraocular muscles appear to be intact. Normocephalic and atraumatic. CARDIOVASCULAR: Regular rate and rhythm without murmur. LUNGS: Clear to auscultation bilaterally. No wheezes, rales or rhonchi. No accessory muscle use. ABDOMEN: Soft and nontender to palpation. IMAGING: She did have a KUB with a nonobstructive bowel gas pattern and moderate retained stool on 03/04. LABORATORY DATA: These include hemoglobin 10.9, sodium 135 and creatinine 0.8. ASSESSMENT AND PLAN: Stage 4 breast cancer. At this point in time, I did discuss extensively with the patient on pain management options. I do believe one option is to increase her fentanyl approximately 24 mg by increasing to a 25 and a 12 mcg patch at the same time. I think that would give her an improvement in her overall pain management. In addition, we discussed the fast acting nature of an oral morphine such as Roxanol, which would be easy to administer. We did discuss that this can be bitter in taste, however, that it may be well tolerated as far as speed and has a longer life span than Dilaudid overall. I do think that this may be a reasonable option for her. In addition, we discussed the possibility of switching to methadone as a management option, but I do not think we have quite yet given fentanyl a long enough time, although I do think we could make this switch here in the future. I did discuss the possibility of adding back her naproxen as a pain management option as multiple management methods and she is amenable to this. I did discuss the risks associated with NSAID use and she is amenable still to this management option. I did discuss the possibility of having a nerve block outpatient. We will explore that possibility at any outlying facility. Unfortunately, the patient's insurance coverage may present a problem with regards to that, although I do believe that this would be a very effective option for the patient in the [facility] [address] [place] [address] CONSULTATION Name: CATA LANGLEY Room #: 226-P [facility] IN M.R.#: [id number] Admission: 02/27/18 Attend Phys: Reymundo Martin DO Discharge: 03/06/18 Date of : 52 Report #: [id number] future. I did provide her with my contact information so we could keep in touch with regards to her pain management if she were to discharge over the weekend. Unfortunately, I will not be available over this weekend, but I am available by phone if we need to make further adjustments to her pain regimen in order for her to discharge to home. Thank you very much for this consultation and call me for any questions you have regarding this consult. <ELECTRONICALLY SIGNED> By: Dimas Macdonald DO 03/09/18 1630 1625 0424 Dimas Macdonald DO /nt
--- NOTE | ~2018-02-27 | HC ---
[facility] [place] [address] CONSULTATION Name: CATA LANGLEY Room #: 416-P [facility] IN M.R.#: [id number] Admission: 02/27/18 Attend Phys: Reymundo Martin DO Discharge: Date of : 52 Report #: [id number] THIS REPORT FOR: //name// CC: Dr. Simona Gonzalez [facility] physician/PCP Reymundo Martin DO DATE OF SERVICE: 03/02/2018 HISTORY OF PRESENT ILLNESS: This patient is admitted with known stage 4 breast cancer and extensive right chest wall disease. She has been seen previously by Dr. Tiffany Mckeon and subsequently by Dr. Simona Gonzalez for her metastatic breast cancer. She was initially diagnosed in July of this year and subsequently placed on exemestane and Ibrance. Her treatment was delayed because of lack of insurance and obtaining Medicaid approval and she currently is complaining of being tired related to her medications. With further discussion, she states that she has actually not been taking her medication as prescribed. In conjunction with the aforementioned hormonal therapy. She did receive palliative radiation therapy treatments. Her breast cancer was staged as [id number] with an invasive mammary cancer of lobular features, grade 2, ER 95, ME 75, HER2 1+ with Ki-67 of 11.9%. She had pulmonary metastases along with skin and subcutaneous mets to her scalp with diffuse bone metastasis and bilateral adrenal gland enlargement and suspected metastasis. FAMILY HISTORY: Positive for cirrhosis in her father who was an alcoholic. PAST MEDICAL HISTORY: Positive for medically managed hypertension. PAST SURGICAL HISTORY: She has had previous tonsillectomy and tubal ligation. SOCIAL HISTORY: She is and lives independently and is retired. She is a reformed smoker, stopped in 2002 after 20 pack years. MEDICATIONS: As listed on the MFR. REVIEW OF SYSTEMS: Positive for ongoing right chest wall disease along with complaints of fatigue. PHYSICAL EXAMINATION: GENERAL: Shows her to be alert, sitting up in bed. [facility] [address] [place] [address] CONSULTATION Name: CATA LANGLEY Room #: 416-P [facility] IN ..#: [id number] Admission: 02/27/18 Attend Phys: Reymundo Martin DO Discharge: Date of : 52 Report #: [id number] HEENT: Shows mouth is clear. NECK: Supple. CHEST: Clear. CARDIOVASCULAR: Normal S1, S2. BREASTS: Show large right breast mass with contracture, peau d'orange dimpling and scattered ulcerations with bandaging. LYMPHATICS: No palpable right supraclavicular adenopathy. EXTREMITIES: Show chronic right arm lymphedema. NEUROLOGIC: No focal localizing signs. PSYCHIATRIC: Not agitated or confused. SKIN: Showed normal turgor. LABORATORY STUDIES: Reviewed. ASSESSMENT: Known metastatic breast cancer. PLAN: As I had discussed with her, hormonal therapy may take months before it shows effectiveness. The fact that she has not been taking her medications will also certainly have any impact. Would also suggest that much of her fatigue and tiredness is related to her cancer as opposed to her treatment. Hormonal therapies are usually well tolerated. We have discussed that if she clearly has evidence of progressive disease, she would be a candidate for systemic chemotherapy if she should choose to pursue. She does understand that there is no curative approach to her diagnosis, however. To that end, we discussed possible hospice informational session if she decides to decline further therapy. At this point, she plans to restart her exemestane and reschedule her followup appointment with Dr. Gonzalez. Thanks for allowing us to participate in her care. By: 1500 1811 Sun Stanford MD /nt
[~2018-02-27 18:35] MED LIST changes: -ASPIR 8181 MG PO; -BISAC-EVAC10 MG RECTAL; -BISACODYL SUPP10 MG RECTAL; -COLACE 100 MG100 MG PO; -DURAGESIC1 EAC2 TOP; -DURAGESIC1 EAC3 TRANSDERM; -DURAGESIC1 EACH TOP; -DURAGESIC1 EACH TRANSDERM; -DURAGESIC25 MCG/HR TRANSDERM; -MILK OF MA2400 MG/10 PO; -MSL20MG/ML SUBLING; -NAPROXEN250 MG PO; -OXYCODONE HCL 55 MG PO; -PROTONIX40 M1 PO; -SENNA8.6 MG PO; -SENNOSIDES8.6 MG PO; -TOPROL XL25 MG PO
[2018-02-27 18:44] VITALS: BP 209/130
[2018-02-27] MEDS ORDERED: OXYCODONE HCL 55 MG PO (18:53)
[2018-02-27 19:24] LABS: URINE BLOOD NEGATIVE (Negative); URINE CLARITY CLEAR; URINE COLOR YELLOW; URINE GLUCOSE-RANDOM* NEGATIVE (Negative); URINE KETONES 3+ (Negative); URINE LEUKOCYTES-REFLEX NEGATIVE (Negative); URINE NITRITE-REFLEX NEGATIVE (Negative); URINE PROTEIN (DIPSTICK) 1+ (Negative); URINE SPECIFIC GRAVITY >= 1.030 (1.005-1.035); URINE UROBILINOGEN 0.2 E.U./dl (0.2-1.0)
[2018-02-27 19:35] LABS: URINE BILIRUBIN NEGATIVE (Negative)
[2018-02-27 19:36] LABS: URINE REDUCING SUBSTANCE NEGATIVE
[2018-02-27 19:37] LABS: BACTERIA-REFLEX 1-9 Few /HPF (None Seen); SQUAMOUS 0-3 Few /LPF (0-3); URINE RBC None Seen /HPF (0-2); URINE WBC-REFLEX 0-5 Rare /HPF (0-5)
[2018-02-27 19:38] LABS: CRYSTALS None Seen /LPF (None Seen); HYALINE CASTS 0-3 Few /LPF (None Seen); MUCUS 0-3 Light strn/LPF (None Seen)
[2018-02-27 19:43] LABS: ABSOLUTE NEUTROPHILS 4.9 thou/uL (1.4-8.2); BASOPHILS 0.8 % (0.0-2.0); EOSINOPHILS 0.4 % (0.0-3.0); HEMOGLOBIN 11.5 gm/dL (12.0-15.0); LYMPHOCYTES 26.4 % (24.0-44.0); MCH 27.2 pg (26.0-34.0); MCHC 32.8 g/dL (28.0-37.0); MCV 82.9 fL (80.0-100.0); MONOCYTES 7.5 % (1.0-8.0); PLATELET COUNT 342 thou/uL (150-400); POLYS 64.9 % (36.0-66.0); RBC 4.22 mil/uL (4.20-5.00); RDW 15.1 % (10.5-14.5); WBC 7.6 thou/uL (4.0-11.0)
[2018-02-27 19:51] LABS: CALCIUM 8.7 mg/dL (8.5-10.1); CREATININE 0.9 mg/dL (0.6-1.0); POTASSIUM 3.8 mmol/L (3.5-5.1)
[2018-02-27 19:56] LABS: ALBUMIN 3.5 g/dL (3.4-5.0); DIRECT BILIRUBIN 0.1 mg/dL (<0.1-0.3); TOTAL BILIRUBIN 0.4 mg/dL (<0.1-1.0); TOTAL PROTEIN 8.2 g/dL (6.4-8.2)
[2018-02-28] VITALS (7 sets, daily range): BP systolic 134–158; BP diastolic 76–96
[2018-02-28] MEDS ORDERED: AROMASIN25 MG PO (00:46)
[2018-02-28] MEDS ORDERED: IBRANCE125 MG PO (00:47)
[2018-02-28 05:35] LABS: CALCIUM 8.4 mg/dL (8.5-10.1); CREATININE 0.7 mg/dL (0.6-1.0)
[2018-03-01 04:00] VITALS: BP 151/99
[2018-03-01 05:57] LABS: ABSOLUTE NEUTROPHILS 4.1 thou/uL (1.4-8.2); BASOPHILS 0.9 % (0.0-2.0); EOSINOPHILS 0.6 % (0.0-3.0); HEMATOCRIT 32.8 % (37.0-47.0); HEMOGLOBIN 10.9 gm/dL (12.0-15.0); LYMPHOCYTES 28.5 % (24.0-44.0); MCH 27.4 pg (26.0-34.0); MCHC 33.2 g/dL (28.0-37.0); MCV 82.6 fL (80.0-100.0); MONOCYTES 8.5 % (1.0-8.0); PLATELET COUNT 307 thou/uL (150-400); POLYS 61.5 % (36.0-66.0); RBC 3.97 mil/uL (4.20-5.00); RDW 14.8 % (10.5-14.5); WBC 6.6 thou/uL (4.0-11.0)
[2018-03-01 06:15] LABS: CALCIUM 9.3 mg/dL (8.5-10.1); CREATININE 0.8 mg/dL (0.6-1.0); POTASSIUM 4.2 mmol/L (3.5-5.1)
[2018-03-01 08:40] VITALS: BP 148/95
[2018-03-01 17:04] VITALS: BP 137/86
[2018-03-01 19:27] VITALS: BP 128/77
[2018-03-02 04:00] VITALS: BP 153/94
[2018-03-02 08:21] VITALS: BP 136/86
[2018-03-02 18:46] VITALS: BP 126/77
[2018-03-02 20:13] VITALS: BP 152/97
[2018-03-03 07:15] VITALS: BP 136/87
[2018-03-03 19:01] VITALS: BP 118/79
[2018-03-04 07:10] VITALS: BP 131/86
[2018-03-04 20:00] VITALS: BP 124/62
[2018-03-05 08:10] VITALS: BP 120/74
[2018-03-05 19:57] VITALS: BP 141/94
[2018-03-05 20:01] VITALS: BP 141/94
[2018-03-06 08:35] VITALS: BP 135/83
[2018-03-06 09:19] LABS: ABSOLUTE NEUTROPHILS 3.5 thou/uL (1.4-8.2); BASOPHILS 0.6 % (0.0-2.0); EOSINOPHILS 1.1 % (0.0-3.0); HEMATOCRIT 34.5 % (37.0-47.0); HEMOGLOBIN 11.2 gm/dL (12.0-15.0); LYMPHOCYTES 29.8 % (24.0-44.0); MCH 26.8 pg (26.0-34.0); MCHC 32.3 g/dL (28.0-37.0); MCV 82.8 fL (80.0-100.0); MONOCYTES 10.8 % (1.0-8.0); PLATELET COUNT 312 thou/uL (150-400); POLYS 57.7 % (36.0-66.0); RBC 4.17 mil/uL (4.20-5.00); RDW 15.4 % (10.5-14.5)
[2018-03-06 09:27] LABS: CALCIUM 8.9 mg/dL (8.5-10.1); CREATININE 0.9 mg/dL (0.6-1.0); POTASSIUM 4.2 mmol/L (3.5-5.1)
[2018-03-06] MEDS ORDERED: MSL20MG/ML SUBLING (14:02)
[2018-03-06] MEDS ORDERED: COLACE 100 MG100 MG PO (14:02)
[2018-03-06] MEDS ORDERED: MILK OF MA2400 MG/10 PO (14:02)
[2018-03-06] MEDS ORDERED: SENNA8.6 MG PO (14:02)
[2018-03-06] MEDS ORDERED: BISAC-EVAC10 MG RECTAL (14:02)
[2018-03-06] MEDS ORDERED: DURAGESIC1 EAC3 TRANSDERM (14:08)
[2018-03-06] MEDS ORDERED: DURAGESIC1 EACH TRANSDERM (14:08)
[2018-03-06] MEDS ORDERED: NAPROXEN250 MG PO (14:08)
[2018-03-06 15:40] VITALS: BP 135/83
[2018-03-06 17:08] VITALS: BP 135/83
== END 2018-03-06 16:45 | disposition home health service (06) | DRG 598 ==
LOC: ER 18:35 → 4N 23:43 → EROBS 23:43 → 4N 02-28 00:41 → SICU 03-02 19:15
PROVIDERS: Emergency Medicine; Family Medicine; Hospitalist; Nurse Practitioner Family
DX: C50.911 Malignant neoplasm of unspecified site of right female breast (principal); E44.0 Moderate protein-calorie malnutrition; Z68.41 Body mass index [BMI] 40.0-44.9, adult; I10 Essential (primary) hypertension; D49.2 Neoplasm of unspecified behavior of bone, soft tissue, and skin; I89.0 Lymphedema, not elsewhere classified; K59.00 Constipation, unspecified; Z79.899 Other long term (current) drug therapy; Z28.21 Immunization not carried out because of patient refusal; Z88.2 Allergy status to sulfonamides; Z87.891 Personal history of nicotine dependence; Z83.79 Family history of other diseases of the digestive system; Z81.1 Family history of alcohol abuse and dependence
CPT/HCPCS: 10790; 15002

== ENCOUNTER 2018-03-09 04:26 | Inpatient (IN) | payer OTHER ==
[2018-03-09] VITALS (7 sets, daily range): BP systolic 112–152; BP diastolic 78–98
[~2018-03-09] VITALS: Ht 149.9 cm; Wt 64.6 kg
--- NOTE | ~2018-03-09 | HC ---
[facility] [place] [address] CONSULTATION Name: CATA LANGLEY Reba Room #: 359-P [facility] IN ..#: [id number] Admission: 03/09/18 Attend Phys: Bipin Major MD Discharge: 03/12/18 Date of : 52 Report #: [id number] THIS REPORT FOR: //name// CC: ROBERTO Major DATE OF SERVICE: 03/10/2018 HISTORY OF PRESENT ILLNESS: The patient is known to me from earlier consultation a week ago when she was admitted for extensive right chest wall disease from stage 4 breast cancer. She came back in with complaints of nausea and weakness. Since hospitalization, she has been receiving IV fluids and is feeling better. It was determined during the course of her last hospitalization that she had not been taking the hormonal therapy as prescribed earlier by Dr. Gonzalez and was to be placed back on exemestane and Ibrance. She said that she has been very nauseated since restarting her medication. Her breast cancer was staged as a T4c N3 M1 invasive mammary cancer of the right breast with lobular features and was multifocal, grade 2 with a positive ER/ND and HER2 of 1. Ki-67 was elevated at 11.9. She in addition has pulmonary metastatic disease along with skin, subcutaneous scalp, bilateral adrenal and bone metastases. FAMILY HISTORY: Positive for cirrhosis in her father who was an alcoholic. SOCIAL HISTORY: She is , lives independently, is a reformed smoker, stopping in 2002 after 20 pack years. PAST MEDICAL HISTORY: Positive also for medically managed hypertension. PAST SURGICAL HISTORY: She has had prior tonsillectomy, tubal ligation. ALLERGIES: None known. MEDICATIONS: As listed on the MFR. REVIEW OF SYSTEMS: As in the history of present illness. PHYSICAL EXAMINATION: GENERAL: Shows her to be alert, sitting up in the room. NECK: Supple. Mouth is clear. CHEST: Clear. CARDIOVASCULAR: S1, S2. BREASTS: Show a large right breast mass with contracture peau D'orange dimpling, scattered ulcerations. LYMPHATICS: She has palpable right supraclavicular adenopathy. [facility] [address] [place] [address] CONSULTATION Name: CATA LANGLEY Room #: 359-P [facility] IN ..#: [id number] Admission: 03/09/18 Attend Phys: Bipin Major MD Discharge: 03/12/18 Date of : 52 Report #: [id number] EXTREMITIES: Chronic right arm lymphedema. NEUROLOGIC: No focal localizing signs. PSYCHIATRIC: Not agitated or confused. SKIN: Normal turgor. LABORATORY DATA: Have been reviewed. ASSESSMENT: Known metastatic breast cancer. PLAN: As discussed during her last hospitalization, I have again recommended that she undergo the information session with hospice to see really if she wants to pursue further treatment or not. If she elects not to be treated then obviously she is a candidate for palliative care and arrangements will be made. Her breast cancer progression in part is due to her lack of compliance/not taking therapy, but clearly the treatment could be pursued if she would so desire. I do not know that she wishes to receive systemic chemotherapy, however, because of her concern of side effects. I have rediscussed with her that most of her fatigue and tiredness is related to her untreated/progressive cancer and actually she may feel no worse on treatment than what she is currently experiencing. She does understand that this is an incurable situation, though one that she could well respond to systemic therapy if she elects to pursue. Thanks again for allowing us to participate in her care. We will await any further questions. <ELECTRONICALLY SIGNED> By: Sun Stanford MD 03/16/18 0818 2209 0346 Sun Stanford MD /nt
--- NOTE | ~2018-03-09 | EKG ---
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: [facility] : 1950 Requested By: Sukumar Ordonez Order Number: [id number] MD: Rashi Gonzalez Measurements Intervals [place] Rate: 112 P: 45 [place]: 152 QRS: -1 QRSD: 70 T: 58 QT: 320 QTc: 437 Interpretive Statements Sinus tachycardia Compared to ECG 10/07/2017 08:01:03 No significant changes Electronically Signed On 03-09-2018 9:12:10 CDT by Rashi Gonzalez [email or web address] <ELECTRONICALLY SIGNED> By: Rashi Gonzalez MD, [facility] 03/09/18 0912 0453 0453 Rashi Gonzalez MD, FACC /EPI
--- NOTE | ~2018-03-09 | H ---
[facility] [place] [address] HISTORY AND PHYSICAL Name: CATA LANGLEY Room #: 359-P [facility] IN M.R.#: [id number] Admission: 03/09/18 Attend Phys: Andrade Lopez MD Discharge: Date of : 52 Report #: [id number] THIS REPORT FOR: //name// CC: Andrade KAPADIA DATE OF SERVICE: 03/09/2018 CHIEF COMPLAINT: Nausea, vomiting and difficulty breathing. HISTORY OF PRESENT ILLNESS: The patient is a 67-year-old female with history of stage IV metastatic breast cancer, presented to the Emergency Room complaining of nausea, vomiting. Symptoms have been ongoing over the last couple of days. The patient was recently admitted here at [facility] for right breast pain and was evaluated by oncologist. The patient was diagnosed with breast cancer in July of last year. She was on chemotherapy pill until a month ago and she stopped taking it because of the nausea and vomiting. When she was seen here last month she was restarted back on her Aromasin. The patient was also started on fentanyl patch for pain control. The patient's pain is well controlled with fentanyl 25 mcg along with fentanyl 12 mcg patch. The patient denies any abdominal pain, no diarrhea, no constipation, no fever or chills. She also complained of shortness of breath in the Emergency Room, she did have a CT of the chest done, which showed no evidence of any pulmonary embolism it did reveal progression of the metastatic breast cancer with more sclerotic bone lesions while it is a worsening left axillary lymphadenopathy with increase in size of the right adrenal mass. The patient denies any fever or chills, no cough, expectoration. No chest pain. PAST MEDICAL HISTORY: Significant for hypertension, history of stage IV breast cancer, history of sinus tachycardia in the past. No history of any peptic ulcer disease, bleeding disorder, history of uterine fibroid. ALLERGIES: She is allergic to SULFA causes mild hives. HOME MEDICATIONS: Reviewed, please look at the nursing documentation of the home medication. PAST SURGICAL HISTORY: Significant for tonsillectomy and tubal ligation. SOCIAL HISTORY: A 92-dyvj-iohc of smoking. Stopped smoking in 2002. No history of any alcohol abuse or illicit drug abuse. REVIEW OF SYSTEMS: CONSTITUTIONAL: She had lost weight, unable to tell me how much weight loss. No fever or chills. HEENT: No change in vision. Denies any headache. [facility] [address] [place] [address] HISTORY AND PHYSICAL Name: CATA LANGLEY Room #: 359-P [facility] IN [facility]#: [id number] Admission: 03/09/18 Attend Phys: Andrade Lopez MD Discharge: Date of : 52 Report #: [id number] THROAT: Denies any sore throat. CARDIOVASCULAR: No chest pain, no dizziness. RESPIRATORY: As above. GASTROINTESTINAL: As above. GENITOURINARY: No dysuria, hematuria. NEUROLOGIC: No focal numbness or weakness of the extremity. PSYCHIATRIC: No anxiety or depression. A 12-point review of system is negative other than the positive and the negative dictated in the history of present illness and in the review of system. FAMILY HISTORY: Significant for breast lump. PHYSICAL EXAMINATION: VITAL SIGNS: Reveal blood pressure 152/96, heart rate of 102 per minute, afebrile. GENERAL: The patient is awake and alert, not in acute respiratory distress. EYES: Pupils equal, reactive to light, nonicteric, conjunctivae. NECK: Supple, no JVD, no bruit, no lymphadenopathy. CARDIOVASCULAR SYSTEM: S1, S2, negative S3, no murmur. CHEST: Bilateral air entry present. Clear on auscultation. Right breast was examined with the nurse in presence. She has erythematous swollen hard right breast. There is some minimal drainage noted. ABDOMEN: Soft, bowel sounds present, no mass, no organomegaly, no tenderness. PERIPHERY: No pedal edema. No calf tenderness. Dorsalis pedis 1+. NEUROLOGICAL: No gross motor or sensory deficit. LABORATORY DATA: Reviewed. White count is 9.5, hemoglobin is 12, hematocrit is 35, platelets 397. BUN and creatinine are 17 and 0.9. AST and ALT are elevated at 68 and 96, alkaline phosphatase is 246. IMAGING: Chest x-ray showed no acute abnormality. CT of the chest showed no evidence of any PE, but progression of metastatic sclerotic disease, increasing in the left axillary adenopathy and increasing right adrenal mass. ASSESSMENT AND PLAN: 1. Nausea and vomiting. Could be related to a fentanyl patch or could be Aromasin. The patient will be started on IV fluids. We will also apply scopolamine patch and Zofran p.r.n. The patient will be placed on Protonix. Because of the elevated liver enzyme, we will obtain ultrasound of her liver to rule out metastatic disease or rule out gallbladder disease. 2. Shortness of breath. CT scan showed no evidence of any PE. Possible lymphangitic spread of breast cancer. CT showed no other acute abnormality other than progression of her metastatic breast cancer. The patient has adequately saturating on room air. 3. Metastatic stage IV breast cancer. CT scan shows progression of her disease. [facility] [address] [place] [address] HISTORY AND PHYSICAL Name: CATA LANGLEY Room #: 359-P [facility] IN ..#: [id number] Admission: 03/09/18 Attend Phys: Andrade Lopez MD Discharge: Date of : 52 Report #: [id number] The patient was started on Aromasin. The patient was very interested in hospice care. We will consult Oncology and Dr. Macdonald. We did cover the code status in detail. The patient wants to be do not resuscitate status. The patient has not discussed with the family about her breast cancer. None of her family members are aware of her breast cancer. I did encourage her to discuss about her stage IV breast cancer and also going to hospice with her daughter in detail. 4. Code status: Do not resuscitate as per patient's request. 5. Deep venous thrombosis prophylaxis. The patient will be on SCD on the leg for deep venous thrombosis prophylaxis. 6. Hypertension. The patient will be continued on p.o. metoprolol. 7. Dehydration. The patient will be continued on IV fluid, we will repeat the labs in the morning. Treatment plan has been explained to the patient in detail. <ELECTRONICALLY SIGNED> By: Bipin Major MD 03/09/18 1805 0930 1051 Bipin Major MD /nt
--- NOTE | ~2018-03-09 | HC ---
[facility] [place] [address] CONSULTATION Name: CATA LANGLEY Room #: 359-P [facility] IN .R.#: [id number] Admission: 03/09/18 Attend Phys: Andrade Lopez MD Discharge: Date of : 52 Report #: [id number] THIS REPORT FOR: //name// CC: Andrade KAPADIA PALLIATIVE CARE CONSULTATION REQUESTING PHYSICIAN: Dr. Lopez CHIEF COMPLAINT: Metastatic breast cancer. HISTORY OF PRESENT ILLNESS: The patient is a 67-year-old female who presented for recurrent admission on 03/09/2018 with reports of intractable nausea and vomiting. The patient is in an independent living apartment complex and reports to me at this current point in time, she has concerns that she has the ability to maintain her level of living and ADLs at this independent living. The patient had previously been admitted for intractable pain to the right breast area. However, this has been improved on pain control with the 37 mcg of fentanyl that she is currently receiving. It is possible that any combination of her medications and/or conditions may have led to this nausea. She reports that it is somewhat improved with the scopolamine; however, she has limited to no appetite at this current point in time. She has met with Dr. Stanford today and had discussed the possibility of hospice as an option for her. I discussed during her last admission both hospice and palliative care as options. The patient had previously not spoken with her family with regards to her current diagnosis, although she is stating that she is now ready to talk with family. The patient is also at this point in time pursuing the possibility of assisted living center and is more amenable to hospice or palliative care, but would like to discuss this further with her daughter. PAST MEDICAL HISTORY: Significant for metastatic breast cancer including femoral involvement. She additionally has a history of hypertension. PAST SURGICAL HISTORY: Tonsillectomy and tubal ligation. SOCIAL HISTORY: A [id number] smoking history. MEDICATIONS: She is currently on fentanyl 37 mcg daily. She additionally was given Roxanol for home use for acute pain management. In addition, the patient was on Colace and senna. She had naproxen as well as metoprolol, Aromasin, Ibrance and aspirin. ALLERGIES: SULFA. SOCIAL HISTORY: Past smoking history again had not previously discussed with her daughter her current medical condition. She is currently DNR status. [address] [address] CONSULTATION Name: CATA LANGLEY Room #: 359-P [facility] IN M.R.#: [id number] Admission: 03/09/18 Attend Phys: Andrade Lopez MD Discharge: Date of : 52 Report #: [id number] REVIEW OF SYSTEMS: GENERAL: Denies any significant weight changes, although she does admit to decreased appetite most recently. CARDIOVASCULAR: Denies chest pain, palpitations or edema. RESPIRATORY: Denies current shortness of breath. ABDOMEN: Reports nausea and vomiting. No diarrhea. MUSCULOSKELETAL: Denies significant pain at this time. PHYSICAL EXAMINATION: VITAL SIGNS: Includes temperature 36.9, pulse 95, respirations 19, blood pressure 127/86, 99% on room air. GENERAL: The patient appears to be alert and oriented x 3. She is in no acute distress. She demonstrates capacity for the understanding of discussion today. CARDIOVASCULAR: Tachycardic though regular rate at this time. RESPIRATORY: Clear to auscultation. ABDOMEN: Positive bowel sounds noted. LABORATORY DATA: These include most recently hemoglobin 12.0, white blood cell count 9.5, platelets 397 and creatinine 0.9. ASSESSMENT AND PLAN: 1. Metastatic breast cancer. Again the patient has discussed with Oncology today and I appreciate their consultation and recommendations. I did discuss again the possibility of hospice care and palliative care as two different options for her. I do believe that it would be a reasonable thing to pursue assisted living, although I did discuss that we would have to consider what that may entail as far as expense. I did encourage her to discuss with family as she may need additional assistance no matter what the direction that we take. We will be setting up a meeting tomorrow to discuss further. I did give her my direct contact information so that we could set up a time for that meeting. I do not yet know when that will be. The patient is again DNR status. She is currently not wanting aggressive interventions. She is amenable to medications even such as Haldol for management of nausea. We had discussed the side effects potentially of these medications and she is still amenable to them. I agree with a scopolamine patch and I agree with the current use of her pain medication. I believe it is doing well for her. I spent approximately 30 minutes on discussion of advanced care planning today. We will discuss further tomorrow. 2. Nausea, possible multifactorial. Again, management with scopolamine and intermittent use of Haldol due to the potency. May additionally benefit from other medications such as steroid related medications for the improvement of this. [facility] [address] [place] [address] CONSULTATION Name: CATA LANGLEY Room #: 359-P [facility] IN ..#: [id number] Admission: 03/09/18 Attend Phys: Andrade Lopez MD Discharge: Date of : 51 Report #: [id number] I will continue to follow with this patient's care. Please contact me for any questions with regards to this patient. By: [id number] Dimas Macdonald DO /nt
[~2018-03-09 04:26] MED LIST changes: +BISAC-EVAC10 MG RECTAL; +COLACE 100 MG100 MG PO; +DURAGESIC1 EAC3 TRANSDERM; +DURAGESIC1 EACH TRANSDERM; +MILK OF MA2400 MG/10 PO; +MSL20MG/ML SUBLING; +NAPROXEN250 MG PO; +OXYCODONE HCL 55 MG PO; +SENNA8.6 MG PO
[2018-03-09 05:03] LABS: ABSOLUTE NEUTROPHILS 6.6 thou/uL (1.4-8.2); EOSINOPHILS 0.3 % (0.0-3.0); HEMATOCRIT 35.9 % (37.0-47.0); LYMPHOCYTES 21.8 % (24.0-44.0); MCH 27.1 pg (26.0-34.0); MCHC 33.4 g/dL (28.0-37.0); POLYS 69.9 % (36.0-66.0); RBC 4.43 mil/uL (4.20-5.00); RDW 14.9 % (10.5-14.5); WBC 9.5 thou/uL (4.0-11.0)
[2018-03-09 05:07] LABS: ANION GAP 15 mmol/L (7-16); BUN 17 mg/dL (7-18); CALCIUM 9.4 mg/dL (8.5-10.1); CHLORIDE 102 mmol/L (98-107); CO2 20 mmol/L (21-32); CREATININE 0.9 mg/dL (0.6-1.0); GLUCOSE 123 mg/dL (74-106); POTASSIUM 4.1 mmol/L (3.5-5.1); SODIUM 137 mmol/L (136-145)
[2018-03-09 05:15] LABS: ALBUMIN 3.5 g/dL (3.4-5.0); DIRECT BILIRUBIN < 0.1 mg/dL (<0.1-0.3); LIPASE 256 U/L (73-393); SGOT 68 U/L (15-37); SGPT 96 U/L (30-65); TOTAL BILIRUBIN 0.3 mg/dL (<0.1-1.0); TOTAL PROTEIN 8.8 g/dL (6.4-8.2); TROPONIN-I < 0.04 ng/mL (<0.06)
[2018-03-09 05:32] LABS: PLATELET COUNT 397 thou/uL (150-400)
[2018-03-10 03:34] VITALS: BP 109/68
[2018-03-10 06:14] LABS: ABSOLUTE NEUTROPHILS 3.8 thou/uL (1.4-8.2); BASOPHILS 0.5 % (0.0-2.0); EOSINOPHILS 1.2 % (0.0-3.0); HEMATOCRIT 29.7 % (37.0-47.0); HEMOGLOBIN 9.6 gm/dL (12.0-15.0); LYMPHOCYTES 32.5 % (24.0-44.0); MCH 26.8 pg (26.0-34.0); MCHC 32.5 g/dL (28.0-37.0); MCV 82.6 fL (80.0-100.0); MONOCYTES 10.3 % (1.0-8.0); PLATELET COUNT 290 thou/uL (150-400); POLYS 55.5 % (36.0-66.0); RDW 15.2 % (10.5-14.5); WBC 6.9 thou/uL (4.0-11.0)
[2018-03-10 06:29] LABS: ALBUMIN 2.6 g/dL (3.4-5.0); CALCIUM 7.8 mg/dL (8.5-10.1); CREATININE 0.7 mg/dL (0.6-1.0); MAGNESIUM 1.9 mg/dL (1.8-2.4); POTASSIUM 3.8 mmol/L (3.5-5.1); TOTAL BILIRUBIN 0.2 mg/dL (<0.1-1.0); TOTAL PROTEIN 6.7 g/dL (6.4-8.2)
[2018-03-10 07:15] VITALS: BP 112/67
[2018-03-10 14:33] VITALS: BP 111/65
[2018-03-10 19:05] VITALS: BP 119/69
[2018-03-11 04:00] VITALS: BP 140/84
[2018-03-11 07:45] VITALS: BP 127/70
[2018-03-11 16:40] VITALS: BP 144/93
[2018-03-11 19:30] VITALS: BP 152/93
[2018-03-12 04:03] VITALS: BP 147/112
[2018-03-12 04:44] VITALS: BP 142/89
[2018-03-12 09:00] VITALS: BP 148/89
[2018-03-12 10:59] VITALS: BP 148/89
== END 2018-03-12 11:19 | disposition home or self-care (01) | DRG 598 ==
LOC: ER 04:26 → 3W 06:24 → EROBS 06:24 → 3W 07:47 → ENTRNSPT 03-12 11:08 → EDTRNSPTSTS 03-12 11:10 → 3W 03-12 11:19
PROVIDERS: Emergency Medicine; Internal Medicine
DX: C50.911 Malignant neoplasm of unspecified site of right female breast (principal); R65.10 Systemic inflammatory response syndrome (SIRS) of non-infectious origin without acute organ dysfunction; I10 Essential (primary) hypertension; Z66 Do not resuscitate; E86.0 Dehydration; Z51.5 Encounter for palliative care; Z85.3 Personal history of malignant neoplasm of breast; Z88.2 Allergy status to sulfonamides; Z87.891 Personal history of nicotine dependence; Z81.1 Family history of alcohol abuse and dependence; Z83.79 Family history of other diseases of the digestive system; Z87.11 Personal history of peptic ulcer disease; Z79.82 Long term (current) use of aspirin; Z79.899 Other long term (current) drug therapy
CPT/HCPCS: 10879

== ENCOUNTER → 2018-03-23 | Outpatient (CLI) | payer OTHER | LOC: HYPER 02-25 15:54 | DX: S21.001D Unspecified open wound of right breast, subsequent encounter (principal); L98.492 Non-pressure chronic ulcer of skin of other sites with fat layer exposed; I10 Essential (primary) hypertension; I89.0 Lymphedema, not elsewhere classified; Z85.3 Personal history of malignant neoplasm of breast; Z87.891 Personal history of nicotine dependence; X58.XXXD Exposure to other specified factors, subsequent encounter ==

== ENCOUNTER → 2018-04-14 | Outpatient (CLI) | payer OTHER | LOC: HYPER 06:58 | DX: S21.001D Unspecified open wound of right breast, subsequent encounter (principal); L98.492 Non-pressure chronic ulcer of skin of other sites with fat layer exposed; C50.111 Malignant neoplasm of central portion of right female breast; I10 Essential (primary) hypertension; I89.0 Lymphedema, not elsewhere classified; Z87.891 Personal history of nicotine dependence; X58.XXXD Exposure to other specified factors, subsequent encounter ==

== ENCOUNTER → 2018-06-02 | Outpatient (CLI) | payer OTHER | LOC: HYPER 06:39 | DX: S21.03 Puncture wound without foreign body of breast (principal); I10 Essential (primary) hypertension; C50.111 Malignant neoplasm of central portion of right female breast; I89.0 Lymphedema, not elsewhere classified; Z87.891 Personal history of nicotine dependence; X58.XXXD Exposure to other specified factors, subsequent encounter ==

== ENCOUNTER → 2018-07-08 | Outpatient (CLI) | payer OTHER ==
[~2018-07-08] MED LIST changes: +ASPIR 8181 MG PO; +BISACODYL SUPP10 MG RECTAL; +DURAGESIC1 EAC2 TOP; +DURAGESIC1 EACH TOP; +DURAGESIC25 MCG/HR TRANSDERM; +SENNOSIDES8.6 MG PO; +TOPROL XL25 MG PO
== END ==
LOC: HYPER 06:56
DX: L98.492 Non-pressure chronic ulcer of skin of other sites with fat layer exposed (principal); S21.001D Unspecified open wound of right breast, subsequent encounter; C50.111 Malignant neoplasm of central portion of right female breast; I10 Essential (primary) hypertension; I89.0 Lymphedema, not elsewhere classified; Z87.891 Personal history of nicotine dependence; X58.XXXD Exposure to other specified factors, subsequent encounter

== ENCOUNTER → 2018-08-05 | Outpatient (CLI) | payer OTHER ==
[~2018-08-05] MED LIST changes: +PROTONIX40 M1 PO
== END ==
LOC: HYPER 07:00
DX: L98.492 Non-pressure chronic ulcer of skin of other sites with fat layer exposed (principal); C50.111 Malignant neoplasm of central portion of right female breast; I10 Essential (primary) hypertension; Z87.891 Personal history of nicotine dependence

== ENCOUNTER → 2018-09-02 | Outpatient (CLI) | payer OTHER | LOC: HYPER 06:28 | DX: L98.492 Non-pressure chronic ulcer of skin of other sites with fat layer exposed (principal); C50.111 Malignant neoplasm of central portion of right female breast; I10 Essential (primary) hypertension; I89.0 Lymphedema, not elsewhere classified; Z87.891 Personal history of nicotine dependence ==

== ENCOUNTER → 2018-09-30 | Outpatient (CLI) | payer OTHER | LOC: HYPER 07:07 | DX: L98.492 Non-pressure chronic ulcer of skin of other sites with fat layer exposed (principal); C50.111 Malignant neoplasm of central portion of right female breast; I10 Essential (primary) hypertension; I89.0 Lymphedema, not elsewhere classified; Z87.891 Personal history of nicotine dependence ==

== ENCOUNTER 2018-10-04 17:52 | Inpatient (IN) | payer OTHER ==
[~2018-10-04] VITALS: Ht 152.4 cm; Wt 57.2 kg
--- NOTE | ~2018-10-04 | HC ---
[facility] [place] [address] CONSULTATION Name: CATA LANGLEY Room #: 450-P [facility] IN ..#: [id number] Admission: 10/04/18 Attend Phys: Andrade Lopez MD Discharge: 10/08/18 Date of : 51 Report #: [id number] THIS REPORT FOR: //name// CC: Andrade Lopez [facility] physician/PCP DATE OF SERVICE: 10/05/2018 WOUND CARE CONSULTATION NOTE REASON FOR CONSULTATION: Fungating, ulcerated locally advanced breast cancer of the right breast with large ulcerated wound. HISTORY OF PRESENT ILLNESS: The patient is an unfortunate 67-year-old woman known to the wound care service under the care of Dr. Randy Molina for a large ulcerated wound of the right chest wall from locally advanced breast cancer. This was treated nonoperatively and the patient never did receive radiation therapy. The patient has known metastatic disease to bone, lung and bilateral adrenal. The patient has been receiving home health. The patient was admitted to the Emergency Room with general weakness, shortness of breath, malaise and body aches with deterioration of the wound. PAST MEDICAL HISTORY: Locally advanced metastatic breast cancer, hypertension, stage 4 breast cancer, history of hypertension, nausea and history of pancreatitis. ALLERGIES: SULFA. (We have, however, been able to treat her wound with morphine and Silvadene). MEDICATIONS: Include fentanyl patch, Aromasin, Xgeva, multivitamins, metoprolol and Benadryl. PHYSICAL EXAMINATION: GENERAL: Shows chronically ill-appearing woman appearing her stated age of 67. HEENT: Mucous membranes are moist. NECK: Supple. EXTREMITIES: Examination of the chest shows a fungating tumor of the right breast with large open ulcer measuring approximately 7 x 8 cm with a dense foul smelling surface exudate. There is lymphedema of the right arm. Other arm is normal. ABDOMEN: Soft. EXTREMITIES: Normal. IMPRESSION: The patient is known to us with locally advanced breast cancer and fungating ulcerated locally advanced tumor of the breast at the right upper chest wall. [facility] [address] [place] [address] CONSULTATION Name: CATA LANGLEY Reba Room #: 450-P [facility] IN ..#: [id number] Admission: 10/04/18 Attend Phys: Andrade Lopez MD Discharge: 10/08/18 Date of : 52 Report #: [id number] PLAN: 1. Pain control with IV narcotic analgesics. 2. Morphine, Silvadene with Xeroform dressings twice daily. The patient has tolerated morphine and Silvadene despite stated SULFA ALLERGY (medical team will treat her constitutional symptoms). Wound care team will follow her locally advanced ulcerated wound with supportive care, morphine, Silvadene dressings. <ELECTRONICALLY SIGNED> By: Anibal Rao MD 10/08/18 1536 0705 [id number] Anibal Rao MD /amari
--- NOTE | ~2018-10-04 | EKG ---
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 : 1950 Requested By: Eliana Harrison Order Number: [id number] MD: Rashi Gonzalez Measurements Intervals [place] Rate: 126 P: 83 ND: 116 QRS: 23 QRSD: 98 T: 72 QT: 351 QTc: 509 Interpretive Statements Sinus tachycardia Nonspecific ST and T wave abnormality Prolonged QT interval Baseline wander in lead(s) II,III,aVF Compared to ECG 03/09/2018 04:53:11 No significant change was found Electronically Signed On 10-05-2018 8:48:56 PHYSICIAN/OPHTHALMOLOGIST by Rashi Gonzalez [email or web address] <ELECTRONICALLY SIGNED> By: Rasih Gonzalez MD, FACC 10/05/18 0848 1800 1800 Rashi Gonzalez MD, [facility] /EPI
[2018-10-04 17:54] VITALS: BP 123/79
[2018-10-04 19:05] LABS: HEMATOCRIT 32.9 % (37.0-47.0); HEMOGLOBIN 10.8 gm/dL (12.0-15.0); MCH 27.1 pg (26.0-34.0); MCHC 32.9 g/dL (28.0-37.0); MCV 82.4 fL (80.0-100.0); RBC 3.99 mil/uL (4.20-5.00); WBC 10.6 thou/uL (4.0-11.0)
[2018-10-04 20:18] LABS: ALBUMIN 3.2 g/dL (3.4-5.0); ANION GAP 10 mmol/L (7-16); BUN 28 mg/dL (7-18); CALCIUM 9.4 mg/dL (8.5-10.1); CHLORIDE 97 mmol/L (98-107); CO2 25 mmol/L (21-32); CREATININE 1.3 mg/dL (0.6-1.0); GLUCOSE 90 mg/dL (74-106); LIPASE 545 U/L (73-393); MAGNESIUM 2.2 mg/dL (1.8-2.4); POTASSIUM 3.8 mmol/L (3.5-5.1); SGOT 57 U/L (15-37); SGPT 29 U/L (30-65); SODIUM 132 mmol/L (136-145); TOTAL BILIRUBIN 0.7 mg/dL (<0.1-1.0); TROPONIN-I <0.06 ng/mL (<0.06)
[2018-10-04 20:59] LABS: URINE BLOOD NEGATIVE (Negative); URINE CLARITY CLEAR; URINE COLOR YELLOW; URINE GLUCOSE-RANDOM* NEGATIVE (Negative); URINE KETONES 2+ (Negative); URINE LEUKOCYTES-REFLEX NEGATIVE (Negative); URINE NITRITE-REFLEX NEGATIVE (Negative); URINE PROTEIN (DIPSTICK) TRACE (Negative); URINE SPECIFIC GRAVITY >= 1.030 (1.005-1.035); URINE UROBILINOGEN 0.2 E.U./dl (0.2-1.0)
[2018-10-04 21:01] LABS: ICTOTEST (BILI CONFIRMATORY) Negative (Negative); URINE BILIRUBIN NEGATIVE (Negative)
[2018-10-04 22:51] VITALS: BP 113/65
[2018-10-04] MEDS ORDERED: ASPIRIN81 M2 PO (23:04)
[2018-10-04] MEDS ORDERED: DURAGESIC1 EACH TOP (23:05)
[2018-10-04] MEDS ORDERED: TOPROL XL50 MG PO (23:06)
[2018-10-04] MEDS ORDERED: MORPHINE S20 MG/5 ML PO (23:12)
[2018-10-04] MEDS ORDERED: BENADRYL25 MG PO (23:13)
[2018-10-04] MEDS ORDERED: VITAMIN D1000 UNI1 PO (23:14)
[2018-10-04] MEDS ORDERED: VITAMINC500 PO (23:14)
[2018-10-04] MEDS ORDERED: XGEVA120 MG/1.7 SUBQ (23:15)
[2018-10-04 23:16] VITALS: BP 107/58
[2018-10-04] MEDS ORDERED: AROMASIN25 MG PO (23:45)
[2018-10-04 23:50] VITALS: BP 116/60
[2018-10-04] MEDS ORDERED: XGEVA120 MG/1.7 MISCELL (23:52)
[2018-10-05 04:06] VITALS: BP 93/60
[2018-10-05 06:07] LABS: CALCIUM 7.9 mg/dL (8.5-10.1); CREATININE 0.9 mg/dL (0.6-1.0); POTASSIUM 3.6 mmol/L (3.5-5.1)
[2018-10-05 07:48] VITALS: BP 100/65
[2018-10-05 13:48] VITALS: BP 107/72
[2018-10-05 19:16] VITALS: BP 108/68
[2018-10-06 03:44] VITALS: BP 92/60
[2018-10-06 07:16] VITALS: BP 94/60
[2018-10-06 13:54] VITALS: BP 98/68
[2018-10-06 13:59] VITALS: BP 98/68
[2018-10-07 05:34] VITALS: BP 109/67
[2018-10-07 07:36] VITALS: BP 110/66
[2018-10-07 14:12] VITALS: BP 105/60
[2018-10-07 19:08] VITALS: BP 103/67
[2018-10-08 05:13] VITALS: BP 95/67
[2018-10-08 08:52] VITALS: BP 97/63
== END 2018-10-08 13:35 | disposition home health service (06) | DRG 391 ==
LOC: ER 17:52 → 4W 23:20
PROVIDERS: Nurse Practitioner Acute Care; Student in an Organized Health Care Education/Training Program
DX: K29.00 Acute gastritis without bleeding (principal); N17.0 Acute kidney failure with tubular necrosis; J90 Pleural effusion, not elsewhere classified; E44.0 Moderate protein-calorie malnutrition; C79.51 Secondary malignant neoplasm of bone; C50.911 Malignant neoplasm of unspecified site of right female breast; A08.4 Viral intestinal infection, unspecified; I10 Essential (primary) hypertension; G89.29 Other chronic pain; M62.84 Sarcopenia; D64.9 Anemia, unspecified; E55.9 Vitamin D deficiency, unspecified; Z88.2 Allergy status to sulfonamides; Z87.891 Personal history of nicotine dependence; Z83.79 Family history of other diseases of the digestive system; Z79.891 Long term (current) use of opiate analgesic; Z79.82 Long term (current) use of aspirin; Z79.899 Other long term (current) drug therapy; Z68.24 Body mass index [BMI] 24.0-24.9, adult
CPT/HCPCS: 10045

== ENCOUNTER → 2018-11-17 | Outpatient (CLI) | payer OTHER ==
[~2018-11-17] MED LIST changes: +ASPIRIN81 M2 PO; +BENADRYL25 MG PO; +MORPHINE S20 MG/5 ML PO; +VITAMIN D1000 UNI1 PO; +VITAMINC500 PO; +XGEVA120 MG/1.7 MISCELL; +XGEVA120 MG/1.7 SUBQ
== END ==
LOC: HYPER 10-28 07:14
DX: L98.492 Non-pressure chronic ulcer of skin of other sites with fat layer exposed (principal); C50.111 Malignant neoplasm of central portion of right female breast; I10 Essential (primary) hypertension; I89.0 Lymphedema, not elsewhere classified; Z87.891 Personal history of nicotine dependence

== ENCOUNTER → 2019-02-01 | Outpatient (CLI) | payer OTHER | LOC: HYPER 12-15 09:08 | DX: L98.492 Non-pressure chronic ulcer of skin of other sites with fat layer exposed (principal); C50.111 Malignant neoplasm of central portion of right female breast; I89.0 Lymphedema, not elsewhere classified; I10 Essential (primary) hypertension; Z87.891 Personal history of nicotine dependence ==

== ENCOUNTER → 2019-03-22 | Outpatient (CLI) | payer OTHER | LOC: HYPER 03-08 10:33 | DX: L98.492 Non-pressure chronic ulcer of skin of other sites with fat layer exposed (principal); C50.111 Malignant neoplasm of central portion of right female breast; S21.109D Unspecified open wound of unspecified front wall of thorax without penetration into thoracic cavity, subsequent encounter; S21.001D Unspecified open wound of right breast, subsequent encounter; I89.0 Lymphedema, not elsewhere classified; I10 Essential (primary) hypertension; Z87.891 Personal history of nicotine dependence; X58.XXXD Exposure to other specified factors, subsequent encounter ==

== ENCOUNTER → 2019-06-15 | Outpatient (CLI) | payer OTHER | LOC: HYPER 06-08 08:28 | DX: L98.492 Non-pressure chronic ulcer of skin of other sites with fat layer exposed (principal); S21.001D Unspecified open wound of right breast, subsequent encounter; S21.109D Unspecified open wound of unspecified front wall of thorax without penetration into thoracic cavity, subsequent encounter; C50.111 Malignant neoplasm of central portion of right female breast; I89.0 Lymphedema, not elsewhere classified; I10 Essential (primary) hypertension; Z87.891 Personal history of nicotine dependence; X58.XXXD Exposure to other specified factors, subsequent encounter ==

== ENCOUNTER → 2019-08-29 | Outpatient (CLI) | payer OTHER ==
[~2019-08-29] MED LIST changes: +LIDOCAINE VISC100 ML MM; +PROCTOSOL-HC28.35 GM PO
== END ==
LOC: HYPER 08-11 07:20
DX: L98.492 Non-pressure chronic ulcer of skin of other sites with fat layer exposed (principal); C50.111 Malignant neoplasm of central portion of right female breast; I89.0 Lymphedema, not elsewhere classified; I10 Essential (primary) hypertension; Z87.891 Personal history of nicotine dependence

== ENCOUNTER 2019-09-21 20:06 | Inpatient (IN) | payer OTHER ==
[~2019-09-21] VITALS: Ht 152.4 cm; Wt 63.5 kg
[~2019-09-21 20:06] MED LIST changes: -LIDOCAINE VISC100 ML MM; -PROCTOSOL-HC28.35 GM PO
[2019-09-21 20:08] VITALS: BP 101/70
[2019-09-21 20:58] LABS: ABSOLUTE NEUTROPHILS 5.3 thou/uL (1.4-8.2); BASOPHILS 0.9 % (0.0-2.0); EOSINOPHILS 1.1 % (0.0-3.0); HEMATOCRIT 39.6 % (37.0-47.0); HEMOGLOBIN 12.6 gm/dL (12.0-15.0); LYMPHOCYTES 30.6 % (24.0-44.0); MCH 27.1 pg (26.0-34.0); MCHC 31.7 g/dL (28.0-37.0); MCV 85.3 fL (80.0-100.0); MONOCYTES 6.2 % (1.0-8.0); PLATELET COUNT 308 thou/uL (150-400); POLYS 61.2 % (36.0-66.0); RBC 4.64 mil/uL (4.20-5.00); RDW 14.1 % (10.5-14.5); WBC 8.7 thou/uL (4.0-11.0)
[2019-09-21 21:03] LABS: ANION GAP 16 mmol/L (7-16); BUN 19 mg/dL (7-18); CALCIUM 9.3 mg/dL (8.5-10.1); CHLORIDE 97 mmol/L (98-107); CO2 22 mmol/L (21-32); CREATININE 0.9 mg/dL (0.6-1.0); GLUCOSE 73 mg/dL (74-106); POTASSIUM 3.5 mmol/L (3.5-5.1); SODIUM 135 mmol/L (136-145)
[2019-09-21 21:14] LABS: ALBUMIN 3.5 g/dL (3.4-5.0); DIRECT BILIRUBIN < 0.1 mg/dL (<0.1-0.3); LIPASE 260 U/L (73-393); SGOT 38 U/L (15-37); SGPT 13 U/L (30-65); TOTAL BILIRUBIN 0.5 mg/dL (<0.1-1.0); TOTAL PROTEIN 8.2 g/dL (6.4-8.2); TROPONIN-I <0.06 ng/mL (<0.06)
--- NOTE | 2019-09-21 22:04 | NUR ---
PT PROVIDED WITH WATER FOR PO CHALLENGE- WILL CONTINUE TO MONITOR AND SEE HOW PT TOLERATES
[2019-09-21 22:46] VITALS: BP 100/67
[2019-09-21 23:11] VITALS: BP 109/62
[2019-09-21 23:41] VITALS: BP 106/70
[2019-09-21] MEDS ORDERED: PROCTOSOL-HC28.35 GM PO (23:54)
[2019-09-21] MEDS ORDERED: LIDOCAINE VISC100 ML MM (23:57)
[2019-09-22 04:33] VITALS: BP 112/77
[2019-09-22 06:00] LABS: CREATININE 0.4 mg/dL (0.6-1.0)
[2019-09-22 06:13] LABS: POTASSIUM 2.3 mmol/L (3.5-5.1)
[2019-09-22 06:14] LABS: CALCIUM 5.4 mg/dL (8.5-10.1)
[2019-09-22 08:46] VITALS: BP 113/61
--- NOTE | 2019-09-22 14:35 | NUR ---
INITIAL ASSESSMENT: Received consult for discharge education. SW reviewed chart and spoke with nursing and attending physician. Pt was admitted from home due to nausea/vomiting. Pt with known hx of stage 4 metastatic breast cancer. Pt diagnosed in July of 2017. Pt sees Dr. Pat Gonzalez at [facility] and receives monthly Xgeva injections. Wound care consulted to evaluate right breast wound. During previous hospitalizations pt has met with palliative care physician to discuss plan of care and treatment goals. Pt noted to be a DNR. SW met with pt at bedside. Introduced role of SW. Pt is alert/orientated x 4. Pt reports she lives at home alone in an apt at [facility]. Pt is normally independent with ADLs. Pt does not use any DME. Pt has a daughter that lives locally. Plan is for pt to discharge home when medically stable. ANDRIY is following to assist as needed with discharge planning.
[2019-09-22 15:49] VITALS: BP 106/52
[2019-09-22 20:34] VITALS: BP 95/68
--- NOTE | 2019-09-22 21:16 | NUR ---
Patient struggled with nausea and loose stools this am. The nausea subsided this afternoon. Per KUB performed today, patient my have a small bowel obstruction and she is now NPO. Nursing will continue to monitor.
[2019-09-22 22:58] VITALS: BP 109/72
[2019-09-23 05:09] VITALS: BP 90/74
--- NOTE | 2019-09-23 06:24 | NUR ---
ASSUMED CARE AT 1900. PT WITH FLAT AFFECT, TALKS VERY LITTLE. DENIES PAIN OR SOB. NO NAUSEA OVERNIGHT UNTIL ABOUT 0500 WHEN CALLED AND ASKED FOR SOMETHING, GAVE ZOFRAN IVP. PT SLIGHTLY IMPULSIVE, LYING SIDEWAYS IN BED AND PUTTING FEET ON SIDERAILS, SOMETIMES TRYING TO GET UP ON HER OWN. MULTIPLE INCONT, LOOSE STOOLS, AND GOT UP TO BSC x6 FOR LOOSE STOOLS. SOFT BP'S OVERNIGHT, WITH HR IN 130'S THE FIRST PART OF THE NIGHT; OBTAINED ORDER FOR ONE TIME DOSE OF LOPRESSOR AND GAVE AT MIDNIGHT, HR HAS BEEN IN THE 115-120 RANGE SINCE THEN. NO OTHER CONCERNS, WILL CONTINUE TO MONITOR.
[2019-09-23 07:59] LABS: POTASSIUM 4.8 mmol/L (3.5-5.1)
[2019-09-23 08:03] LABS: CALCIUM 9.6 mg/dL (8.5-10.1)
[2019-09-23 08:37] VITALS: BP 103/58
--- NOTE | 2019-09-23 12:18 | EKG ---
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: : 1950 Requested By: Lexy Gama Order Number: [id number] MD: Danilo Geiger Measurements Intervals [place] Rate: 127 P: 78 CA: 115 QRS: 23 QRSD: 68 T: 31 QT: 323 QTc: 470 Interpretive Statements Sinus tachycardia Nonspecific ST segment abnormalities Compared to ECG 10/04/2018 18:00:20 ST (T wave) deviation no longer present Prolonged QT interval no longer present Electronically Signed On 09-23-2019 12:18:00 CANAL LOCK TENDER CHIEF OPERATOR by Danilo Geiger [email or web address] <ELECTRONICALLY SIGNED> By: Danilo Geiger MD 09/23/19 1218 29 29 Danilo Geiger MD /MITCH
--- NOTE | 2019-09-23 12:36 | NUR ---
SW reviewed chart and spoke with nursing and attending physician. Pt is not ready for discharge home today. Pt tested positive for c.diff. Possible weekend discharge. Pt may need transportation home when discharged. Staff to get a cab voucher from [employer]fabricated houses [employer]mer if needed. SW is available to assist should needs arise.
[2019-09-23 15:32] VITALS: BP 101/58
--- NOTE | 2019-09-23 16:40 | NUR ---
ASSUMED PATIENT CARE AT 0700. A/O X4. FLAT. C/O NASUEA NO VOMIT. NOTED BS LOW IN AM THAT RECHECK AT 1200 WAS 50. CHANGED FLUID TO D5. WILL KEEP MONITOR. STILL HAS LOOS STOOL. SLOWLY TOWARDS POC GOALS.
[2019-09-23 20:14] VITALS: BP 88/52
--- NOTE | 2019-09-24 00:05 | NUR ---
ASSUMED CARE AT 190, ASSESSMENT COMPLETED AT 2029. PT A&Ox4, DENIED PAIN, NAUSEA, OR SOB. REPORTED HAVING HEARTBURN AFTER DRINKING APPLE JUICE, OFFERED MAALOX BUT PT DECLINED STATING IT DIDN'T WORK. HR HIGH IN 130'S, BLOOD PRESSURE SOFT; REPOSITIONED PT, PULLING UP IN BED AND SITTING UP STRAIGHT TO IMPROVE BREATHING AND HEARTBURN, NO CHANGE IN HR NOTED. NOTIFIED NURSE PRACTIONER, BUT NO NEW ORDERS RECEIVED. PT CALLED OUT AT 2114, TOLD THE DRILLER'S OFFSIDER SHE WAS HAVING TROUBLE BREATHING. THIS NURSE ENTERED ROOM AT 2115, FOUND PT TO BE VERY PALE, SMALL AMOUNT OF SPIT COMING OUT OF MOUTH. NON RESPONSIVE TO VERBAL OR PHYSICAL STIMULI. CALLED RAPID RESPONSE. UNABLE TO OBTAIN BLOOD PRESSURE, NO CAROTID PULSE FELT OR HEARBEAT HEARD. PT IN PEA ON TELE THEN ASYSTOLE. TOD CALLED BY TWO NURSES AT 2119. NOTIFIED FAMILY AND NURSE PRACTIONER. SUMMARY AND PROTOCOL FOLLOWED.
--- NOTE | 2019-09-27 08:09 | HC ---
[facility] [place] [address] CONSULTATION Name: CATA LANGLEY Room #: 356-P [facility] IN .R.#: [id number] Admission: 09/21/19 Attend Phys: Tyrell Bishop Discharge: 09/23/19 Date of : 52 Report #: [id number] THIS REPORT FOR: //name// CC: CARLOS physician/PCP Tyrell Bishop DATE OF SERVICE: 09/22/2019 WOUND CARE CONSULTATION HISTORY OF PRESENT ILLNESS: This is a 68-year-old female patient with a history of stage 4 breast cancer. She has an open ulceration to the right breast area; we are treating palliatively. I have been asked to see her with regard to wound care evaluation. PAST MEDICAL HISTORY: Positive for metastatic stage 4 breast cancer, right arm lymphedema, right breast ulceration, persistent diarrhea and some nausea and vomiting. She has had increasing weakness and has been admitted to the hospital for further treatment and evaluation. ALLERGIES: The patient has allergies to SULFA. MEDICATIONS: Hydrocortisone, topical lidocaine, fentanyl, denosumab, aspirin, fentanyl, diphenhydramine, cholecalciferol and ascorbic acid. FAMILY HISTORY: Positive for cirrhosis of the liver in her father. SOCIAL HISTORY: The patient is a previous smoker. No alcohol use. REVIEW OF SYSTEMS: CONSTITUTIONAL: The patient complains of some generalized weakness. Denies fever or chills. ENT: The patient denies earache, nasal drainage or sore throat. CARDIOVASCULAR: The patient denies chest pain or palpitations or diaphoresis. PULMONARY: The patient denies cough or shortness of breath. GASTROINTESTINAL: The patient has nausea and some vomiting as well as persistent diarrhea. ORTHOPEDIC: The patient denies pain and swelling of the extremities. SKIN: The patient does complain of the standard ulceration to the right anterior chest. Other systems in a 14-point review of systems are negative. PHYSICAL EXAMINATION: VITAL SIGNS: At this time include temperature 36.8, pulse 128, respiratory rate 24, blood pressure 106/52. GENERAL: This is a chronically ill-appearing female patient who appears to be [facility] [address] [place] [address] CONSULTATION Name: CATA LANGLEY Reba Room #: 356-P [facility] IN M.R.#: [id number] Admission: 09/21/19 Attend Phys: Tyrell Bishop Discharge: 09/23/19 Date of : 52 Report #: [id number] in mild discomfort. HEENT: Head normocephalic. Nose and throat are clear. NECK: Supple. LUNGS: Diminished. HEART: Tachycardic without murmur. ABDOMEN: Soft. Bowel sounds present. SKIN: Chest wall demonstrates open ulceration to the right anterior chest in the breast region. It is felt that this area likely represents a cutaneous spread of tumor. There is no obvious odor or evidence of infection at this time. She is mildly tender to palpation. EXTREMITIES: Show 2+ edema. NEUROLOGIC: The patient is alert and does move all 4 extremities. LABORATORY DATA: Sodium 135, potassium 3.5, chloride 97, BUN 19, creatinine 0.9, albumin is 3.5. White blood cell count 8.7 with a hemoglobin of 12.6. CLINICAL IMPRESSION: Ulceration of the right anterior chest wall/breast with: 1. Stage 4 metastatic breast cancer. 2. Nausea, vomiting, diarrhea, possible gastroenteritis. 3. Chronic pain. RECOMMENDATIONS: At this point in time, we will recommend continuation of topical lidocaine, Silvadene and crushed Flagyl to the right anterior chest wall, covered with Xeroform gauze and ABD to be changed daily and as needed. Recommend aggressive nutritional support as much as possible, continuation of current medications, gentle hydration as currently ordered. I appreciate being asked to see her in consultation. <ELECTRONICALLY SIGNED> By: Ilia Morgan MD 09/27/19 0809 1432 0251 Ilia Morgan MD /nt
== END 2019-09-23 21:20 | DRG 871 ==
LOC: ER 20:06 → 3W 22:19 → EROBS 22:19 → 3W 23:04
PROVIDERS: Emergency Medicine; Nurse Practitioner Family; ADMIT Hospitalist
DX: A41.9 Sepsis, unspecified organism (principal); I26.99 Other pulmonary embolism without acute cor pulmonale; A04.72 Enterocolitis due to Clostridium difficile, not specified as recurrent; C79.51 Secondary malignant neoplasm of bone; F11.20 Opioid dependence, uncomplicated; I10 Essential (primary) hypertension; R00.0 Tachycardia, unspecified; G89.4 Chronic pain syndrome; E87.6 Hypokalemia; C50.919 Malignant neoplasm of unspecified site of unspecified female breast; Z88.2 Allergy status to sulfonamides; Z87.891 Personal history of nicotine dependence; Z91.14 Patient's other noncompliance with medication regimen; Z83.79 Family history of other diseases of the digestive system
CPT/HCPCS: 10879